=== PATIENT | male | born 1945 | race Caucasian/White ===

== ENCOUNTER 2020-02-01 12:26 | Outpatient (CLI) | payer OTHER, SELFPAY ==
--- NOTE | 2020-02-01 12:32 | USCV_ITS ---
Ang Yap Age: 74 Gender: M : 1945 Exam Date: 02/01/2020 12:49 Ordering Phys: Raymond Olea MD Technologist: Lottie Aguirre Exam Location: [facility] Indication: CAD BP: / HR: 66 Rhythm: Sinus Technical Quality: Adequate MEASUREMENTS (Male / Female) Normal Values 2D ECHO LV Diastolic Diameter PLAX 3.6 cm 4.2 - 5.9 / 3.9 - 5.3 cm LV Systolic Diameter PLAX 2.8 cm LV Chamber Size 2.4 cm IVS Diastolic Thickness 1.1 cm 0.6 - 1.0 / 0.6 - 0.9 cm IVS Systolic Thickness 1.6 cm LVPW Diastolic Thickness 1.1 cm 0.6 - 1.0 / 0.6 - 0.9 cm LVPW Systolic Thickness 1.0 cm RV Chamber Size 2.1 cm LVOT Diameter 2.0 cm LV Ejection Fraction 2D Teich 46.5 % LV Ejection Fraction MOD 2C 56.6 % LV Ejection Fraction 2C AL 61.9 % LA Diameter 2.7 cm LA Width 2.9 cm LA Height 2.7 cm RA Width 2.7 cm RA Height 3.0 cm Aorta at Sinotubular Diameter 3.4 cm M-MODE LV Diastolic Diameter MM 3.5 cm 4.2 - 5.9 / 3.9 - 5.3 cm LV Systolic Diameter MM 2.5 cm LV Ejection Fraction MM Teich 59.0 % IVS Diastolic Thickness MM 0.9 cm 0.6 - 1.0 / 0.6 - 0.9 cm IVS Systolic Thickness MM 1.2 cm LVPW Diastolic Thickness MM 0.9 cm 0.6 - 1.0 / 0.6 - 0.9 cm LVPW Systolic Thickness MM 1.2 cm RV Diastolic Diameter MM 1.2 cm Aortic Annulus Diameter 3.5 cm LA Ao Ratio MM 0.8 MV E Point Septal Separation 0.6 cm DOPPLER AV Peak Velocity 101.0 cm/s LVOT Peak Velocity 72.0 cm/s AV Area Cont Eq vti 2.3 cm squared AV Area Cont Eq pk 2.3 cm squared MV Area PHT 3.1 cm squared Mitral E to A Ratio 0.9 MV E' Velocity 8.0 cm/s Mitral E to MV E' Ratio 9.2 Mitral E to LV E' Lateral Ratio 9.5 Mitral E to LV E' Septal Ratio 9.0 TR Peak Velocity 217.3 cm/s TR Peak Gradient 18.9 mmHg TR Mean Velocity 168.0 cm/s TR Mean Gradient 12.4 mmHg TR Velocity Time Integral 59.5 cm TV Peak E Velocity 71.0 cm/s Right Atrial Pressure 5.0 mmHg Pulmonary Artery Systolic Pressu 23.9 mmHg PV Peak Velocity 50.0 cm/s RV Acceleration Time 0.1 s RV Ejection Time 0.4 s RV AcT/ET 0.4 FINDINGS Left Ventricle Normal left ventricular size and systolic function, EF 55 %. Mild left ventricular hypertrophy. Mild hypokinesia of the basal septum. grade I/IV diastolic dysfunction (abnormal relaxation filling pattern), normal to mildly elevated filling pressures. Right Ventricle Normal right ventricular size and systolic function. Right Atrium Normal right atrial size. Left Atrium Normal left atrial size. Mitral Valve Thickened mitral valve. Trace mitral valve regurgitation. Aortic Valve Thickened aortic valve. Tricuspid Valve Trace tricuspid valve regurgitation. Pulmonic Valve No gross abnormalities noted Pericardium No pericardial effusion. Aorta Normal aortic annulus size. CONCLUSIONS Normal left ventricular size and systolic function, EF 55 %. Mild left ventricular hypertrophy. No regional wall motion abnormalities. Grade I/IV diastolic dysfunction (abnormal relaxation filling pattern), normal to mildly elevated filling pressures. Thickened mitral valve. Trace mitral valve regurgitation. Thickened aortic valve. Trace tricuspid valve regurgitation. Estimated pulmonary artery peak systolic pressure of 24 mmHg There are no intracardiac masses. There is no pericardial effusion. Compared to the study from 03/17/2019, no significant changes in the 2D finding Dr Reji Ayers MD FAC (Electronically Signed) Final Date: 01 February 2020 18:26 S
== END 2020-02-01 12:27 | disposition home or self-care (01) ==
LOC: US 12:27
PROVIDERS: PCP Emergency Medicine Emergency Medical Services; Visit Provider Orthopaedic Surgery
DX: I25.10 Atherosclerotic heart disease of native coronary artery without angina pectoris (principal); I08.0 Rheumatic disorders of both mitral and aortic valves
CPT/HCPCS: 93306

== ENCOUNTER 2020-02-12 06:54 | Outpatient (CLI) | payer OTHER, SELFPAY ==
--- NOTE | 2020-02-12 07:00 | MR_ITS ---
WS: [id number] MRI LUMBAR SPINE NONCONTRAST TECHNIQUE: Sagittal T1, T2 and STIR imaging. Axial T1 and T2 imaging. CLINICAL INFORMATION: LOW BACK PAIN W/RADICULOPATHY COMPARISON: None. FINDINGS: Mild lumbar curve. No acute compression. No high-grade central canal stenosis. L1-L2: Tiny right foraminal protrusion with mild right foraminal narrowing. L2-L3: Mild annular bulging. Tiny left foraminal protrusion with mild left foraminal narrowing. Mild facet arthropathy. L3-L4: Annular bulging with a small right foraminal protrusion. Contact of the exiting right L3 nerve root with mild to moderate right foraminal narrowing. Left foramen is patent. Mild to moderate facet arthropathy. L4-L5: Right eccentric disc osteophyte ridging with mild right foraminal narrowing. Left foramen is p atent. Mild facet arthropathy. L5-S1: Mild disc osteophytic ridging. Slight effacement of ventral thecal sac. Moderate bilateral for aminal narrowing right greater than left. Moderate facet arthropathy. Visualized pelvic bony structures: Normal. Paravertebral soft tissues: Normal. MR/MR lumbar spine wo con* [id number] IMPRESSION: 1. Mild lumbar curve. No acute compression. No high-grade central canal stenos is. 2. Small right foraminal protrusion L3-4 contacts the exiting right L3 nerve r oot with mild to moderate foraminal narrowing. 3. Mild to moderate right L4-5 foraminal narrowing. Encroachment on the far ex iting L4 nerve root due to disc osteophyte complex. 4. Tiny right foraminal protrusion L1-2 with mild right foraminal narrowing. 5. Small left foraminal protrusion L2-3 encroaches on the exiting left L2 nerv e root. 6. Disc osteophytic ridging L5-S1 with moderate bilateral foraminal narrowing right greater than left. Correlation for right L5 nerve root symptoms.
== END 2020-02-12 06:55 | disposition home or self-care (01) ==
PROVIDERS: PCP Emergency Medicine Emergency Medical Services; Visit Provider Emergency Medicine Emergency Medical Services
DX: M54.5 Low back pain (principal); M54.16 Radiculopathy, lumbar region; M25.78 Osteophyte, vertebrae; M51.26 Other intervertebral disc displacement, lumbar region
CPT/HCPCS: 72148

== ENCOUNTER → 2020-08-22 11:05 | Outpatient (BNVA) | payer OTHER, SELFPAY | PROVIDERS: PCP Emergency Medicine Emergency Medical Services; Referring Provider Family Medicine; Visit Provider Specialist | DX: M25.512 Pain in left shoulder (principal) | CPT/HCPCS: 73030 ==

== ENCOUNTER → 2021-01-25 14:12 | Outpatient (BNVA) | payer OTHER, SELFPAY | PROVIDERS: PCP Emergency Medicine Emergency Medical Services; Referring Provider Family Medicine; Visit Provider Specialist | DX: M79.662 Pain in left lower leg (principal) | CPT/HCPCS: 73560; 73565; 73590 ==

== ENCOUNTER → 2021-02-15 08:57 | Outpatient (BNVA) | payer OTHER, SELFPAY | PROVIDERS: PCP Emergency Medicine Emergency Medical Services; Visit Provider Internal Medicine Cardiovascular Disease | DX: E78.2 Mixed hyperlipidemia (principal); I25.10 Atherosclerotic heart disease of native coronary artery without angina pectoris | CPT/HCPCS: 80048; 83880 ==

== ENCOUNTER 2021-03-23 14:40 | Outpatient (CLI) | payer OTHER, SELFPAY ==
--- NOTE | 2021-03-23 14:46 | USCV_ITS ---
Ang Yap Age: 76 Gender: M : 1945 Exam Date: 03/23/2021 15:04 Ordering Phys: Jonn Duffy DO Technologist: Nathalia Winslow [place] [facility] [place]ication: PAIN Risk Factors: Previous Vascular Surgery: RIGHT LEFT BP: 156.0 / 74.00 BP: 163.0/ 75.00 0 0 Waveform Velocity (cm/s) Velocity (cm/s) Waveform Monophasic 42.0 Iliac Prox 21.4 Monophasic Monophasic 43.4 Iliac Mid 20.2 Monophasic Monophasic 41.9 Iliac Distal 23.3 Monophasic Monophasic 48.2 ELECTRIC DEICER INSPECTOR 26.2 Monophasic Monophasic 29.9 SFA Prox 27.2 Monophasic Monophasic 39.4 SFA Mid 27.2 Monophasic Monophasic SFA Dist Monophasic 30.3 36.1 Monophasic 15.9 POP 20.8 Monophasic Monophasic 14.4 INTERNET CONSULTANT 22.4 Monophasic Monophasic 25.6 DPA 17.9 Monophasic 0.4 SANCHO 0.5 FINDINGS RT INTERNET CONSULTANT 35 RT DPA 70 LT INTERNET CONSULTANT 80 LT DPA 60 Monophasic low velocity Doppler waveforms bilaterally Moderate diffuse plaques iliac and femoral arteries bilaterally. Resting SANCHO of 0.4 on the right side and 0.5 on the left side CONCLUSIONS 1. Abnormal resting SANCHO and arterial Doppler waveforms, suggestive of severe obstructive arterial disease bilaterally. 2. Possible aortoiliac disease. Dr Reji Ayers MD [facility] (Electronically Signed) Final Date: 23 March 2021 23:46 S
== END 2021-03-23 14:41 | disposition home or self-care (01) ==
LOC: US 14:42
PROVIDERS: PCP Emergency Medicine Emergency Medical Services; Visit Provider Emergency Medicine Emergency Medical Services
DX: M79.604 Pain in right leg (principal); M79.605 Pain in left leg
CPT/HCPCS: 93925

== ENCOUNTER → 2021-04-03 13:52 | Outpatient (BNVA) | payer OTHER, SELFPAY | PROVIDERS: PCP Emergency Medicine Emergency Medical Services; Referring Provider Emergency Medicine Emergency Medical Services; Visit Provider Podiatrist Foot & Ankle Surgery | DX: M25.572 Pain in left ankle and joints of left foot (principal) | CPT/HCPCS: 73630 ==

== ENCOUNTER 2021-06-26 12:38 | Outpatient (CLI) | payer OTHER, SELFPAY ==
--- NOTE | 2021-06-26 12:47 | USCV_ITS ---
Ang Yap Age: 76 Gender: M : 1945 Exam Date: 06/26/2021 13:27 Ordering Phys: Reji Ayers MD ([email or web address]) Technologist: TRISH Exam Location: [facility] – [place] Indication: c/o BILATERAL neck bruits. Long-term smoker continues smoking. No DM. Risk Factors: c/o BILATERAL neck bruits. Long-term smoker continues smoking. No DM. Previous Vascular Surgery: None Right Brachial BP: / Left Brachial BP: / Right Left Velocity (cm/s) Spectral Plaque Velocity (cm/s) Spectral Plaque Syst/Diast Broadening Syst/Diast Broadening 73.90/ 13.20 None Homo Prox CCA 127.40/ 21.80 None Hetro 90.40/ 14.30 None Homo Mid CCA 141.40/ 18.60 None Hetro 87.10/ 16.50 None Homo Distal CCA 104.10/ 18.60 None Hetro 76.90/ 18.80 None Homo Prox ICA 78.60 / 19.70 None Hetro 87.20/ 29.10 None Homo Mid ICA 101.70/ 23.10 None Homo 81.20/ 24.80 None Homo Distal ICA 104.20/ 25.60 None Homo 364.60 Mod Hetro ECA 358.90 Mod Hetro 0.96 ICA/CCA 0.74 Antegrade Vertebral Antegrade 66.70/ 19.70 cm/s 38.80/ 9.30 cm/s Tri Subclavian Tri 108.1 142.9 0 0 FINDINGS Mild to moderate heterogeneous plaques at the bifurcations and proximal internal carotid arteries bilaterally Markedly elevated velocities in the external carotid arteries bilaterally Antegrade flow in the vertebral arteries bilaterally Normal Doppler flow velocities in the subclavian arteries bilaterally CONCLUSIONS Mild to moderate heterogeneous plaques at the bifurcations and proximal internal carotid arteries bilaterally, suggesting less than 50% stenosis. Elevated velocities in the external carotid arteries bilaterally, suggesting hemodynamically significant stenosis. Dr Reji Ayers MD [facility] (Electronically Signed) Final Date: 28 June 2021 20:45 S
--- NOTE | 2021-06-26 13:30 | USCV_ITS ---
Ang Yap Age: 76 Gender: M : 1945 Exam Date: 06/26/2021 12:20 Ordering Phys: Keo Deal DPM Technologist: Jay Schuster RVT [place] [facility] [place]: [place]OT PAIN RIGHT LEFT Brachial 122.00 mmHg Brachial 115.00 mmHg Pressure (mmHg) Waveform Pressure (mmHg) Waveform 70.00 Above Knee 68.00 68.00 Below Knee 93.00 LOADER 57.00 73.00 DPA 76.00 0.60 Ankle/Brachial Index 0.62 54.00 Pre-Exercise Toe Pressure 41.00 Pre-Exercise Toe/Brachial Index 0.34 0.44 FINDINGS Diminished resting ABIs bilaterally Diminished resting TBI bilaterally PVR waveforms showing loss of dicrotic notch bilaterally CONCLUSIONS The above features are consistent with some moderate peripheral artery disease bilaterally Features of possible total occlusion of the posterior tibial artery on the right side Dr Reji Ayers MD [facility] (Electronically Signed) Final Date: 28 June 2021 20:20 S
== END 2021-06-26 12:39 | disposition home or self-care (01) ==
LOC: US 12:38
PROVIDERS: PCP Emergency Medicine Emergency Medical Services; Visit Provider Podiatrist Foot & Ankle Surgery
DX: R09.89 Other specified symptoms and signs involving the circulatory and respiratory systems (principal)
CPT/HCPCS: 93880; 93923

== ENCOUNTER → 2021-07-13 10:45 | Outpatient (BNVA) | payer OTHER, SELFPAY | PROVIDERS: PCP Emergency Medicine Emergency Medical Services; Referring Provider Internal Medicine Cardiovascular Disease; Visit Provider Internal Medicine Cardiovascular Disease | DX: M79.605 Pain in left leg (principal) | CPT/HCPCS: 80048; 85025; 85610; 86850; 86900; 87635 ==

== ENCOUNTER 2021-07-17 06:07 | Outpatient (CLI) | payer OTHER, MEDICARE, SELFPAY ==
[2021-07-17] VITALS (12 sets, daily range): BP systolic 101–141; BP diastolic 56–82; PULSE 79–89; RESP 14–22; TEMP 36.4–37.1; O2SAT 80–98; BMI 28.8
--- NOTE | 2021-07-17 06:00 | XACV_ITS ---
Wt: 78 kg BSA: 1.92 m2 Any Known Allergies: Penicillins Gender: Male : 1945 Exam Type: Invasive Peripheral Vascular - Dual Hull Procedure(s): Procedure Description: Peripheral Cath Diagnostic Procedure Procedure Description: Abdominal aortic angiography Procedure Description: Peripheral vascular Intervention Procedure Description: PV Balloon Procedure Description: PV Stent Procedure Description: Aortic Arch Angiography Exam Priority: Routine GEOAC, Armen; Carotid Diagnostic Findings The right femoral arterial access obtained using a micropuncture needle system. A 6 Slovenian arterial sheath was inserted over a guidewire. Lower Extremity Diagnostic Findings The right femoral arterial access obtained using a micropuncture needle system. A 6 Slovenian arterial sheath was inserted over a guidewire. Guidewire could not be advanced past the aortoiliac junction. I performed an external iliac angiogram with runoff in the anteroposterior view by injecting into the arterial sheath. The findings are as follows. The external iliac and the common iliac artery were found to have severe diffuse disease and possibly occluded at the iliofemoral junction. Collateral filling of the common femoral artery was noted to circumflex iliac/lumbar arteries. Moderate diffuse calcification was noted around the origin of the profunda femoral artery. The femoral, popliteal and infrapopliteal vessels were found to be patent. The anterior tibial and the peroneal artery was found to be extending up to the ankle. Proximal one third of the posterior tibial artery was visualized and was found to be free of any significant stenosis. The distal segments of this arteries were found to have delayed filling. Lower Extremity Interventional Findings Intervention: Right femoral and right radial approach was adopted, through right radial we placed pigtail catheter for injection and runoff. Through right femoral approach Glidewire wire advanced over which seeker catheter was passed. After somewhat difficulty I was able to cross and through right external iliac, common iliac into aorta. Multiple balloon angioplasty of the common and ostial iliac was performed. Then I advanced a wire through right radial approach. I was able to cross with a Glidewire through right radial approach into left common iliac . We then withdraw pigtail catheter out of the body. Through right radial approach we passed balloon into the left common iliac since we decided to placed covered stent in the right common iliac with intention of kissing balloon. Right common iliac was then treated with covered stent with a kissing balloon technique. Thrombus was noted in the right common femoral and proximal SFA. Anticoagulation was given, it finally cleared it. Good angiographic result with good flow was noted from right common femoral to SFA and profundofemoral. Please also note that we used IVUS to assess right common femoral ostial lesion after stent placement. Stent was appear to be distorted. It was then postdilated with excellent result.. Conclusions Possible occlusion of the right common iliac artery at the aortoiliac junction. Severe diffuse disease in the and external iliac arteries. Collateral filling of the common femoral artery through lumbar/circumflex iliac arteries. Femoral, popliteal and infrapopliteal vessels were found to be patent with no significant stenotic lesions. The distal infrapopliteal vessels are not well visualized because of the delayed filling. Recommendations I discussed and reviewed the angiogram findings with Dr Loera. It was thought to be appropriate to consider percutaneous intervention of the right iliac artery lesions, after evaluating the aortao- iliac junction and the left iliac vessels. Dr. Loera took over further management of this patient at this point. 1-Return to inpatient for close monitoring and routine cath care2-Risk factor modification for secondary prevention3-Statin and aspirin 81 mg life--long, if tolerated4-Patient was pre-loaded with 300 mg of Plavix, continue Plavix 75mg p.o. daily for at 3 months from peripheral perspective. 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 He will be brought back in 2 weeks with right radial approach for intervention on the left side.5-Continue optimal medical management6-Follow up with Dr. Ayers in four weeks and your primary care in 10 days. Hemodynamic Data Phase:Rest AO : 69.0 / 64.0 ( 63.0 ) @ 5:53:00 AM 99.0 / 54.0 ( 76.0 ) @ 6:58:00 AM 123.0 / 47.0 ( 79.0 ) @ 7:39:00 AM Access Site Site: Right Femoral artery Sheath Size: 6 Fr Hemost... Method: Perclose (Sharma) Hemost... Success: Successful Site: Right Radial artery Sheath Size: 6 Fr Hemost... Method: TR Band Hemost... Success: Successful Procedure Details Findings Procedure Consent Obtained. Admit Source: Out Patient. Pre-Procedure Time Out. Identified patient by full name and date of as verbalized by the patient/guarantor. Does the consent match the physician's order: Yes. Accurate & Complete Informed Consent: Yes. Inpatient/Outpatient History & Physical on Chart: Yes. If H&P is completed, is and addenduem needed: Yes; If yes, is the addendum complete: N/A. Visualize and Verify Site with Patient/Guarantor: N/A. Relevant Radiology Images available: N/A. Pre-op teaching completed and patient verbalized understanding. The risks, benefits, and alternatives of sedation and/or procedure were discussed by physician. The patient agrees to continue. Procedure started. Correct patient, site and procedure confirmed by cath team. PERRLA. Strong, equal hand catering cook bilaterally. Lungs clear x 5 lobes. IV Site on Arrival: 20 gauge in the left anticubital. Pre Procedural Pulses: bilateral dorsalis pedis was Doppled. Pre Procedural Pulses: bilateral posterior tibial was Doppled. Pre Procedural Pulses: bilateral radial was 1+. Oxygen started at 2liters/min via nasal canula. bilateral groins was prepped with chloroprep then draped in the usual sterile fashion. Physician notified. Baseline sample Acquired. HR: 94 BPM. Physician arrived. Physician scrubbed in. Time out performed with cath team. Lidocaine 1% infiltrated to the right groin. Arterial access obtained with micropuncture set. hand injection performed. hand injection performed. hand injection performed. glidewire inserted. A 5FrFr UF catheter in over wire. hand injection performed through the catheter. Catheter out. Abdominal aortogram performed in AP @ 10 mL/sec for a total of [address] Loera notified. Side port of sheath attached to Normal Saline flush at KVO to maintain patency. Dr. Loera arrived. Dr. Loera scrubbed in to perform intervention. Lidocaine 1% infiltrated to the right radial. Arterial access obtained. A 5 occitan Angled Pig catheter in over wire. Catheter inserted over the glide wire. LV gram performed in AP @ 10 mL/second for a total of 30 mL. runoff performed of the left leg. Pigtail postioned above the bifurcation of the iliacs. Aortagram performed @ 10 mL/sec for a total of 30 mL. runoff performed of the left leg. Glidewire in through the sheath. Seeker in over the glidewire. wire out. hand injection performed through the seeker. going in with glidewire through the seeker. seeker out. Inflation number : 1 A AB ARMADA 35 OTW [id number] was prepped and advanced across the Ostial Common Iliac, Right , then inflated to 6 ANA for 2:01 seconds. Inflation number: 2 The AB ARMADA 35 OTW [id number] was reinflated across the Ostial Common Iliac, Right, to 6 ANA for 0:12 seconds. Inflation number: 3 The AB ARMADA 35 OTW [id number] was reinflated across the Ostial Common Iliac, Right, to 6 ANA for 2:03 seconds. balloon out. Abdominal aortogram performed in BOYCE @ 10 mL/sec for a total of 30 mL. Abdominal aortogram performed in AP @ 10 mL/sec for a total of 30 mL. hand injection performed through the femeral sheath. Sheath upsized to a 7 Fr. hand injection performed. Inflation Number : 4 A LIFESTREAM 8MMX [id number] -Lot Number# [id number] exp date: 11-12-2023 was prepped and advanced across the Ostial Common Iliac, Right. The stent was deployed at 8 ANA for 2:03 seconds. checking results. Inflation number : 5 A AB ARMADA 35 OTW [id number] was prepped and advanced across the Ostial Common Iliac, Right , then inflated to 6 ANA for 2:02 seconds. balloon out. checking results. hand injection performed through the femeral sheath. Abdominal aortogram performed in BOYCE @ 103 mL/sec for a total of 30 mL. LV gram performed in BOCYE @ 10 mL/second for a total of 30 mL. Inflation number : 6 A AB ARMADA 35 OTW [id number] was prepped and advanced across the Ostial Common Iliac, Right , then inflated to 6 ANA for 0:10 seconds. Inflation number: 7 The AB ARMADA 35 OTW [id number] was reinflated across the Ostial Common Iliac, Right, to 6 ANA for 2:01 seconds. Inflation number: 8 The AB ARMADA 35 OTW [id number] was reinflated across the Ostial Common Iliac, Right, to 6 ANA for 2:02 seconds. balloon out. Abdominal aortogram performed in AP @ 10 mL/sec for a total of 30 mL. hand injection performed in the femoral sheath. hand injection performed. seeker in over the glidewire. glidewire out. seeker out. [employer] [place] [employer] digital IVUS Catheter inserted. IVUS catheter out. seeker inserted over the cougar wire. cougar wire out. glidewire inserted. ACT drawn. Results 197 seconds. Therapeutic limits - pre-heparin administration 90-150 seconds and monitoring heparin during a vascular procedure >250 seconds. Pigtail postioned above the bifurcation of the iliacs. Aortagram performed @ 10 mL/sec for a total of 20 mL. glidewire in through the pigtail. pigtail out over glidewire. Inflation number : 1 A AB ARMADA 35 OTW [id number] was prepped and advanced across the Ostial Common Iliac, Left , then inflated to 6 ANA for 2:01 seconds. Inflation Number : 9 A LIFE STREAM [id number] -Lot Number# [id number] exp date: 04-13-2023 was prepped and advanced across the Ostial Common Iliac, Right. The stent was deployed at 8 ANA for 2:00 seconds. balloon out. In with pigtail through radial sheath. Pigtail postioned above the bifurcation of the iliacs. Aortagram performed @ 10 mL/sec for a total of 30 mL. Heath catheter placed by Marry Mead RN. Abdominal aortogram performed in AP @ 10 mL/sec for a total of 30 mL. runoff performed of the left leg. popliteal was prepped with chloroprep then draped in the usual sterile fashion. Mariana Maxilupe scrubbed in for Sahara Howard. Lidocaine 1% infiltrated to the popliteal. ultra sound used to try and help gain access. aborting popliteal access. glidewire inserted through the radial sheath. pigtail out over glidewire. seeker inserted over the glidewire. seeker out over the glidewire. JR4 inserted. JR4 out over glidewire. glidewire out of groin. groin shot performed. TR band placed. Hemostasis obtained. Perclose placed without complications. No signs or symptoms of hematoma noted. Sterile dressing applied per usual sterile fashion. Post Procedure: Pulses reassessed and unchanged. PERRLA. Strong, equal hand catering cook bilaterally. No VTE prophylaxis required. Medication's Wasted: Lidocaine 1% = 10 mL. Medication's Wasted: Nitro = 50 mg. Medication's Wasted: Heparin = 1500 units. Total IV fluids: 320 mL. Contrast type used: Visipaque 320 mgI/mL, 500 mL bottle. Contrast Material : Visipaque 565 ml. A Perclose ([employer]) was successful obtaining hemostatsis at the Right Femoral artery insertion site. A TR Band was successful obtaining hemostatsis at the Right Radial artery insertion site. TELEVISION DIRECTOR: common/external illiac with stents. Post-op diagnosis: successful angioplasty. Complications: none. Estimated blood loss: 5mL-10mL. Responsiveness - Normal response to verbal stimuli; alert and oriented, PERRLA. Airway - Unaffected, no intervention required; spontaneous ventilation. Circulation: W/N/L, pulses unchanged. Nausea/Vomiting: N/A. Procedure completed. Patient transferred by bed to 1st floor. Vital chart was stopped. Procedure Medications Start: 7:24 AM Stop: 7:24 AM Medication: Versed Amount: 1 mg Route: I.V. Start: 7:24 AM Stop: 7:24 AM Medication: Fentanyl Amount: 50 mcg Route: I.V. Start: 7:49 AM Stop: 7:49 AM Medication: Versed Amount: 1 mg Route: I.V. Start: 8:06 AM Stop: 8:06 AM Medication: Heparin Amount: 1500 units Route: I.V. Start: 8:24 AM Stop: 8:24 AM Medication: Heparin Amount: 1000 units Route: I.V. Start: 8:42 AM Stop: 8:42 AM Medication: Versed Amount: 1 mg Route: I.V. Start: 8:42 AM Stop: 8:42 AM Medication: Fentanyl Amount: 25 mcg Route: I.V. Start: 9:07 AM Stop: 9:07 AM Medication: Versed Amount: 1 mg Route: I.V. Start: 9:10 AM Stop: 9:10 AM Medication: Fentanyl Amount: 25 mcg Route: I.V. Start: 9:12 AM Stop: 9:12 AM Medication: Zofran (ondansetron) Amount: 4 mg Route: I.V. Start: 9:29 AM Stop: 9:29 AM Medication: Heparin Amount: 5000 units Route: I.V. Start: 9:36 AM Stop: 9:36 AM Medication: Heparin Amount: 5000 units Route: I.V. Start: 9:54 AM Stop: 9:54 AM Medication: Fentanyl Amount: 25 mcg Route: I.V. Start: 10:17 AM Stop: 10:17 AM Medication: Fentanyl Amount: 25 mcg Route: I.V. Start: 10:30 AM Stop: 10:30 AM Medication: Versed Amount: 1 mg Route: I.V. Start: 10:30 AM Stop: 10:30 AM Medication: Heparin Amount: 2000 units Route: I.V. Start: 10:53 AM Stop: 10:53 AM Medication: Versed Amount: 1 mg Route: I.V. Start: 11:10 AM Stop: 11:10 AM Medication: Fentanyl Amount: 25 mcg Route: I.V. Start: 11:26 AM Stop: 11:26 AM Medication: Fentanyl Amount: 25 mcg Route: I.V. I, the attending physician, have reviewed and verified all procedure medications. Yes, all medications given per verbal order History/Risk Factors Hypertension: Yes Dyslipidemia: Yes Tobacco Use: Current/Recent(w/in 1 year) Report Signatures Interventional Workflow Finalized by Margot Loera MD on 07/30/2021 04:50 PM Diagnostic Workflow Finalized by Dr Reji Ayers MD [facility] on 07/17/2021 08:37 PM
[2021-07-17] MEDS: diphenhydrAMINE 50 mg Capsule PO (06:39)
[2021-07-17 06:57] LABS: Basophils # 0.1 10^3/uL (0.0-0.1); Basophils % 0.6 %; Eosinophils # 0.3 10^3/uL (0.0-0.8); Eosinophils % 2.6 %; Hematocrit 39.7 % (42.0-52.0); Hemoglobin 13.1 g/dL (11.7-16.6); Lymphocytes # 1.8 10^3/uL (0.8-4.8); Lymphocytes % 14.6 %; Mean Corpuscular Hemoglobin 32.2 pg (28.0-34.0); Mean Corpuscular Volume 97.5 fl (80-94); Mean Platelet Volume 8.8 fL (7.4-10.4); Monocytes # 1.4 10^3/uL (0.2-0.9); Monocytes % 11.1 %; Neutrophils # 8.53 10^3/uL (1.8-7.7); Neutrophils % 70.3 %; Nucleated Red Blood Cells % 0 %; Platelet Count 224 10^3/cmm (130-400); Red Blood Count 4.07 10^6/uL (4.1-5.3); Red Cell Distribution Width 13.1 % (12.1-15.1); White Blood Count 12.1 10^3/uL (4.0-10.0)
--- NOTE | 2021-07-17 07:22 | W.PM.OPSUD ---
Surgery/Procedure H&P Update DATE OF PROCEDURE: July 17, 2021 DATE H&P PERFORMED: 07/10/21 H&P UPDATE INFORMATION: I have reviewed H&P completed within last 30 days, I have examined patient prior to procedure and No changes to prior documentation PREOP DIAGNOSIS: PAD PRIMARY INDICATION FOR PROCEDURE: leg pain, agnormal [place] PLANNED PROCEDURE: Operation Date: 07/17/21 07:00 Proposed Procedures p Peripheral Diagnostic(Bilateral) - Reji Ayers MD PATIENT REASSESSED PRIOR TO SEDATION, WITH NO CHANGE NOTED: Yes PHYSICAL EXAM: alert, oriented x 3, clear to auscultation bilaterally and regular rate & rhythm AIRWAY EVAL/ANESTHESIA PLAN: normal airway, see other exam findings, ASA II, Monitored Anesthesia, Local Anesthesia, Risks, benefits & alternatives of sedation and/or procedure discussed and Patient agrees to continue as planned
--- NOTE | 2021-07-17 12:00 | PC.NURSE ---
Received from [employer] pt is awake, alert, oriented. pt has a TR band on right wrist. no hematoma, swelling or bleeding. radial pulse is palpable. pt has a periclose on right groin. no hematoma, swelling or bleeding. pedal pulses are diminished but dopplerable. feet is warm. pt denies any pain or discomfort. Pt has cline cath placed in [employer]. call light provided. at bedside.
[2021-07-17] MEDS: sodium chloride 0.9% 1,000 ML 100 ML IV ×2 (12:56→23:51)
[2021-07-17] MEDS: clopidogrel 300 mg Tablet PO (12:58)
[2021-07-17] MEDS: amlodipine 5 mg Tablet PO ×2 (13:12→19:29)
[2021-07-17] MEDS: cilostazol 100 mg Tablet PO ×2 (13:12→19:28)
[2021-07-17] MEDS: carvedilol 25 mg Tablet PO ×2 (13:15→19:28)
[2021-07-17] MEDS: aspirin 81 mg EC Tablet PO (13:16)
[2021-07-17] MEDS: albuterol 8 gm MDI 1 PUFF INHALATION ×3 (13:40→20:07)
[2021-07-17] MEDS: chlorthalidone 25 mg Tablet PO (14:52)
--- NOTE | 2021-07-17 19:20 | PC.NURSE ---
Received report from CAITLYN Maria. Patient s/p peripheral angiogram with intervention. Patient upset at this time due to wanting to go and have a smoke . Instructed patient on hospital policy regarding smoking. Patient verbalized understanding. Was offered nicotine patch or gum which he refused. Patient denies other needs. No distress observed. Will continue to monitor.
[2021-07-17] MEDS: temazepam 15 mg Capsule PO (19:28)
[2021-07-17] MEDS: atorvastatin 40 mg Tablet PO (19:29)
[2021-07-17] MEDS: HYDROcodone-acetaminophen 5-325 mg Tablet 1 TAB PO (23:50)
[2021-07-18 02:38] LABS: Basophils # 0.1 10^3/uL (0.0-0.1); Basophils % 0.4 %; Eosinophils # 0.2 10^3/uL (0.0-0.8); Eosinophils % 1.7 %; Hematocrit 38.2 % (42.0-52.0); Hemoglobin 12.6 g/dL (11.7-16.6); Lymphocytes # 1.4 10^3/uL (0.8-4.8); Lymphocytes % 10.1 %; Mean Corpuscular Hemoglobin 32.2 pg (28.0-34.0); Mean Corpuscular Volume 97.7 fl (80-94); Monocytes # 1.5 10^3/uL (0.2-0.9); Monocytes % 10.8 %; Neutrophils # 10.63 10^3/uL (1.8-7.7); Neutrophils % 76.6 %; Nucleated Red Blood Cells % 0 %; Platelet Count 211 10^3/cmm (130-400); Red Blood Count 3.91 10^6/uL (4.1-5.3); Red Cell Distribution Width 13.1 % (12.1-15.1); White Blood Count 13.9 10^3/uL (4.0-10.0)
[2021-07-18 03:02] LABS: Anion Gap 13.5 (5-19); Blood Urea Nitrogen 12 mg/dL (8-23); Calcium 7.6 mg/dL (8.5-10.5); Carbon Dioxide 26 mmol/L (22-29); Chloride 101 mmol/L (98-107); Glucose 84 mg/dL (65-115); Osmolality Calculated 283 mOsm/kg (285-295); Potassium 3.5 mmol/L (3.5-5.1); Sodium 137 mmol/L (136-145)
[2021-07-18 04:22] VITALS: BP 148/76; PULSE 92; RESP 24; TEMP 36.6; O2SAT 86
[2021-07-18] MEDS: HYDROcodone-acetaminophen 5-325 mg Tablet 1 TAB PO ×2 (04:29→08:35)
--- NOTE | 2021-07-18 05:32 | PC.NURSE ---
Patient has uneventful evening. Patient does report chronic pain in his neck stating, I just can't lie in a bed. I usually sleep in a recliner at home. Instructed patient on hydrocodone. Patient verbalized complete understanding. Denies other needs. No distress observed. Will continue to monitor.
[2021-07-18 05:47] VITALS: PULSE 86
[2021-07-18 07:24] VITALS: PULSE 99; RESP 20; O2SAT 90
[2021-07-18] MEDS: albuterol 8 gm MDI 1 PUFF INHALATION (07:24)
[2021-07-18 08:05] VITALS: BP 133/66; PULSE 96; RESP 18; TEMP 36.6; O2SAT 90
[2021-07-18] MEDS: amlodipine 5 mg Tablet PO (08:28)
[2021-07-18] MEDS: isosorbide mononitrate ER 60 mg Tablet 120 MG PO (08:28)
[2021-07-18] MEDS: chlorthalidone 25 mg Tablet PO (08:28)
[2021-07-18] MEDS: aspirin 81 mg EC Tablet PO (08:28)
[2021-07-18] MEDS: cilostazol 100 mg Tablet PO (08:28)
[2021-07-18] MEDS: carvedilol 25 mg Tablet PO (08:28)
--- NOTE | 2021-07-18 10:41 | XRR_ITS ---
PROCEDURE INFORMATION: Exam: XR Chest Exam date and time: 07/18/2021 10:41 AM Age: 76 years old Clinical indication: Other: Low o2 levels; Additional info: O2 saturations TECHNIQUE: Imaging protocol: XR of the chest. Views: 1 view. Total images: 1 COMPARISON: CR XR knees AP WB w LT lmt ORTH 01/25/2021 2:20 PM FINDINGS: Lungs: Trace atelectasis or scar noted in the left lung base. Pleural spaces: Unremarkable. No pleural effusion. No pneumothorax. Heart/Mediastinum: Unremarkable. No cardiomegaly. Vasculature: Atherosclerosis is evident. Bones/joints: Mild scattered degenerative changes of the spine. XR/XR chest 1V portable [id number] IMPRESSION: Trace atelectasis or scar noted in the left lung base.
--- NOTE | 2021-07-18 10:48 | PC.NURSE ---
Spoke with Dr ramos about patient needing o2 during this stay to maintain o2 grater than 90% instructions received to obtain chest xray he would be to see patient soon have patient walk with no o2 and check saturations with ambulation
[2021-07-18 11:45] VITALS: BP 133/66; PULSE 96; RESP 18; TEMP 36.6; O2SAT 90
[2021-07-18] MEDS: potassium chloride ER 10 mEq Tablet PO (11:53)
[2021-07-18] MEDS: clopidogrel 75 mg Tablet PO (11:53)
[2021-07-18] MEDS: FUROsemide 40 mg Tablet PO (11:53)
--- NOTE | 2021-07-18 11:58 | PC.NURSE ---
Discharge Note Patient discharged to home via private vehicle accompanied by spouse. Discharge instructions reviewed with patient and/or labor relations representative. Mobile pharmacy medications and/or prescriptions provided. Belongings/home medications returned.
== END 2021-07-18 11:58 | disposition home or self-care (01) ==
LOC: CCL 06:18 → CSU 07-18 06:10
PROVIDERS: Internal Medicine Cardiovascular Disease; PCP Emergency Medicine Emergency Medical Services; Visit Provider Internal Medicine Cardiovascular Disease
DX: I70.211 Atherosclerosis of native arteries of extremities with intermittent claudication, right leg (principal); I10 Essential (primary) hypertension; E78.5 Hyperlipidemia, unspecified; F17.210 Nicotine dependence, cigarettes, uncomplicated; I25.10 Atherosclerotic heart disease of native coronary artery without angina pectoris; Z79.82 Long term (current) use of aspirin
CPT/HCPCS: 36415; 37221; 37222; 71045; 75625; 75716; 80048; 85025; 85347; 92978; 94640; C1725; C1753; C1760; C1769; C1874; C1887; C1894; J1644; J2250; J2405; J3010; J3490; J3535; J7030; Q0163; Q9967

== ENCOUNTER → 2021-07-25 15:10 | Outpatient (BNVA) | payer OTHER, SELFPAY | PROVIDERS: PCP Emergency Medicine Emergency Medical Services; Visit Provider Nurse Practitioner Family | DX: Z20.822 Contact with and (suspected) exposure to COVID-19 (principal); I73.9 Peripheral vascular disease, unspecified | CPT/HCPCS: 80048; 85025; 85610; 87635 ==

== ENCOUNTER → 2021-08-09 00:01 | Outpatient (BNVA) | payer OTHER, SELFPAY | PROVIDERS: PCP Emergency Medicine Emergency Medical Services; Referring Provider Internal Medicine Cardiovascular Disease; Visit Provider Internal Medicine Cardiovascular Disease | DX: I73.9 Peripheral vascular disease, unspecified (principal); M79.605 Pain in left leg; Z20.822 Contact with and (suspected) exposure to COVID-19 | CPT/HCPCS: 87635 ==

== ENCOUNTER 2021-08-10 14:41 | Observation (INO) | payer OTHER, SELFPAY ==
[2021-08-10] VITALS (30 sets, daily range): BP systolic 117–163; BP diastolic 60–82; PULSE 74–103; RESP 15–24; TEMP 36.3; O2SAT 91–98; BMI 28.8
--- NOTE | 2021-08-10 06:00 | XACV_ITS ---
Wt: 78 kg BSA: 1.92 m2 Any Known Allergies: Plavix Gender: Male : 1945 Exam Type: Invasive Peripheral Vascular Procedure(s): Procedure Description: Peripheral Cath Diagnostic Procedure Procedure Description: Abdominal aortic angiography Procedure Description: Lower extremities' angiography Procedure Description: Peripheral vascular Intervention Procedure Description: PV Balloon Procedure Description: PV Atherectomy Exam Priority: Routine Lower Extremity Interventional Findings Peripheral intervention: Popliteal approach through retrograde stick was adopted. After placing six Uzbek sheath with the help of Glidewire and seeker we were able to cross from distal left occluded SFA into all the way to aorta. Using 2.0 CSI bur r atherectomy was performed from distal to proximal left SFA, distal to proximal left common femoral, distal to proximal left external iliac artery over Viper wire. With the help of seeker then we exchange back Glidewire over which multiple balloon angioplasties and left common iliac, external iliac, common femoral, SFA was performed. Excellent angiographic result with good flow was achieved from common iliac to all the way to the left foot. Good three-vessel runoff was noted below the knee. . Below the knee left tibioperoneal trunk anterior posterior tibial artery all the way to the foot was visualized with good flow. During the angiogram it was also noted previously placed right common iliac artery stent appeared to be closed there was no flow. It is possible since we placed the stent through right common femoral approach and at the site of entrance the sheath in the right common femoral artery there appeared to be disease and plaque segment which may have shutdown resulted in clotting of the stent. We will bring back patient to go through left common femoral vessel to intervene on occluded stent of the right common iliac. . Conclusions Indication for peripheral angiogram: Lifestyle limiting claudicationPeripheral angiogram: This is a stage percutaneous intervention from previous peripheral angiogram.Left mid to distal common iliac, internal/external iliac, common femoral, SFA limb is all course from ostium to popliteal artery was noted chronically occluded. Left popliteal, tibioperoneal trunk anterior posterior tibial vessel are patent.. Please see inventory for details use of equipment including balloon and atherectomy device. null was treated with two Balloon. null was treated with Balloon. null was treated with Balloon. Recommendations 1-Return to inpatient for close monitoring and routine cath care2-Risk factor modification for secondary prevention3-Statin and aspirin 81 mg life--long, if tolerated 4- C ontinue Plavix 75mg p.o. daily for at least 3 months 5- S tage percutaneous angioplasty of the right common iliac occluded stent and artery 6-Follow up with cardiology in four weeks and your primary care in 10 days. Hemodynamic Data Phase:Rest AO : / ( 0.0 ) @ 6:59:00 AM Access Site Site: Left Popliteal Sheath Size: 6 Fr Hemost... Method: Suture Hemost... Success: Successful Procedure Details Findings Procedure Consent Obtained. Pre-Procedure Time Out. Identified patient by full name and date of as verbalized by the patient/guarantor. Does the consent match the physician's order: Yes. Accurate & Complete Informed Consent: Yes. Inpatient/Outpatient History & Physical on Chart: Yes. If H&P is completed, is and addenduem needed: No; If yes, is the addendum complete: N/A. Visualize and Verify Site with Patient/Guarantor: N/A. Relevant Radiology Images available: Yes. The risks, benefits, and alternatives of sedation and/or procedure were discussed by physician. The patient agrees to continue. Procedure started. Correct patient, site and procedure confirmed by cath team. Current Diagnosis: Critical Limb Ischemia, Intermittent Claudication. PERRLA. Strong, equal hand avionics integration engineer bilaterally. Lungs clear x 5 lobes. IV Site on Arrival: 20 gauge in the left anticubital. IV Fluids: 0.9% NaCl at KVO. 0 mL infused prior to labor union business representative. Pre Procedural Pulses: bilateral dorsalis pedis was Doppled. Pre Procedural Pulses: bilateral posterior tibial was Doppled. Pre Procedural Pulses: bilateral radial was 3+. Oxygen started at 2liters/min via nasal canula. Left popliteal was prepped with chloroprep then draped in the usual sterile fashion. Physician notified. Baseline sample Acquired. HR: 89 BPM. Family updated at start of case by MD. Equipment: 6F - Femoral. Cardiac Cath Pack. [employer] Fantasy Manifold Kit Model BT 2000. Heparinized Saline (2 units/mL), 1000 mL bag. Kit, Micropuncture. Physician arrived. Physician scrubbed in. Immediate Pre-Procedure Time Out. Correct Patient: Yes; Correct Procedure: Yes; Correct Site: Yes; Correct Patient Position: Yes; Correct Supplies: Yes; Dried Flammable Prep: Yes; Blood Products Available: N/A;. Lidocaine 1% infiltrated to the Left popliteal. Circulating RN is Marry Mead RN. Arterial access obtained with micropuncture set. Glidewire inserted through the sheath. Seeker inserted. Wire/Seeker advanced to the distal Aorta. Wire removed. Viper wire inserted. Seeker removed. 2.0 CSI fox inserted. Atherectomy of the SFA and common femoral and external iliac performed. 2.0 FOX removed over the wire. Seeker inserted. Viper wire removed.Glidewire inserted to distal aorta. Seeker removed. Inventory is: Endoflator. Inflation number : 1 A AB [place] 35 MARKER DELIVERY Catheter [id number] was prepped and advanced across the External Iliac, Left , then inflated to 6 ANA for 2:05 seconds. Inflation number: 1 The AB [place] 35 MARKER DELIVERY Catheter [id number] was reinflated across the Common Femoral, Left, to 6 ANA for 2:06 seconds. Inflation number: 1 The AB [place] 35 MARKER DELIVERY Catheter [id number] was reinflated across the Superficial Femoral, Left, to 6 ANA for 2:01 seconds. Wire out. Hand Injection through the balloon of common femoral and SFA, Left side. Glidewire inserted through the balloon. Balloon out over the wire. A 5 nigerien Angled Pig catheter in over wire. Glidewire removed. Pigtail postioned above the bifurcation of the iliacs. Aortagram performed @ 10 mL/sec for a total of 30 mL. Pigtail postioned above the bifurcation of the iliacs. Aortagram performed @ 10 mL/sec for a total of 30 mL. Pigtail postioned above the bifurcation of the iliacs. Aortagram performed @ 10 mL/sec for a total of 30 mL. Side port of sheath attached to Normal Saline flush at KVO to maintain patency. Catheter removed over the glidewire. 10 ml/sec for a total of 30 ml taken through the sheath. Inflation number : 2 A AB [place] 35 OTW [id number] was prepped and advanced across the Superficial Femoral, Left , then inflated to 7 ANA for 2:05 seconds. Inflation number: 3 The AB [place] 35 OTW [id number] was reinflated across the Superficial Femoral, Left, to 8 ANA for 2:08 seconds. Balloon out over the wire. 10 ml/sec for a total of 30 ml taken through the sheath. Wire removed. 10 ml/sec for a total of 30 ml taken through the sheath with distal runoff. Physician review of films. Physician scrubbed out. A Suture was successful obtaining hemostatsis at the Left Popliteal insertion site. Sheath(s) sutured into position with 2-0 silk and sterile 4x4's and Op-site applied over the site. No oozing or signs and symptoms of hematoma noted. Arterial sheath flushed and connected to tranducer and pressure bag with heparinized saline. Post Procedure: Pulses reassessed and unchanged. PERRLA. Strong, equal hand avionics integration engineer bilaterally. No VTE prophylaxis required. Medication's Wasted: Lidocaine 1% = 13 ml. Total IV fluids: 180 mL. Medication's Wasted: Heparin = 2000 units. Fluoro: 11:06. Contrast type used: Visipaque 320 mgI/mL, 200 mL bottle. [id number]. Post-op diagnosis: Balloon angioplasty and atheretomy of common femoral, external iliac and the sfa on the left side. Complications: None. Estimated blood loss: 5mL-10mL. Responsiveness - Normal response to verbal stimuli; alert and oriented, PERRLA. Airway - Unaffected, no intervention required; spontaneous ventilation. Circulation: W/N/L, pulses unchanged. Nausea/Vomiting: No. Procedure completed. Patient transferred by bed to CPRU. Vital chart was stopped. Procedure Medications Start: 8:11 AM Stop: 8:11 AM Medication: Versed Amount: 1 mg Route: I.V. Start: 8:11 AM Stop: 8:11 AM Medication: Fentanyl Amount: 50 mcg Route: I.V. Start: 8:13 AM Stop: 8:13 AM Medication: Versed Amount: 1 mg Route: I.V. Start: 8:26 AM Stop: 8:26 AM Medication: Versed Amount: 1 mg Route: I.V. Start: 8:32 AM Stop: 8:32 AM Medication: Heparin Amount: 5000 units Route: I.V. Start: 8:37 AM Stop: 8:37 AM Medication: Fentanyl Amount: 25 mcg Route: I.V. Start: 8:54 AM Stop: 8:54 AM Medication: Versed 1 mg and Fentanyl 25 mcg Amount: 1 Route: I.V. Start: 9:17 AM Stop: 9:17 AM Medication: Heparin Amount: 2000 units Route: I.V. I, the attending physician, have reviewed and verified all procedure medications. Yes, all medications given per verbal order History/Risk Factors Hypertension: Yes Dyslipidemia: Yes Peripheral Arterial Disease (PAD): Yes Obesity: No Renal Disease: No Tobacco Use: Current/Recent(w/in 1 year) Prior Interventions PCI: No CABG: No Valve Surgery: No Report Signatures Finalized by Margot Loera MD on 08/24/2021 08:41 PM
[2021-08-10] MEDS: diphenhydrAMINE 50 mg Capsule PO (06:47)
--- NOTE | 2021-08-10 07:54 | P.HP_ITS ---
Same Day Surgery H&P Indication for Procedure/HPI DATE OF PROCEDURE: August 10, 2021 CHIEF COMPLAINT/INDICATIONFOR SURGICAL PROCEDURE: 76-year-old male past medical history significant for extensive peripheral arterial disease for lifestyle limiting claudication with also almost [place]. He underwent right common femoral external and common iliac reconstruction and stent placement few days ago. He was noted to have left common iliac, external iliac, common femoral and SFA occlusion with reconstitute at popliteal vessel. He continues to have significant lifestyle limiting claudication of the left leg his right leg is doing good. We brought him today to proceed with intervention of the left lower limb. Patient has been explained all risk benefit and alternative for the procedure. He understand risk for contrast-induced nephropathy embolic phenomena major minor bleed leading to transfusion, vascular injury, limb loss, hematoma, acute arterial occlusion and vascular surgery. He would like to proceed with it. PREOP DIAGNOSIS: PAD PLANNED PROCEDURE: Operation Date: 08/10/21 07:00 Proposed Procedures p Peripheral Diagnostic(Bilateral) - Margot Loera MD Medications/Allergies* Home Medications Medication Instructions Recorded Confirmed Type naproxen 500 mg tablet 500 mg PO BID 06/28/20 08/10/21 History cilostazol 100 mg tablet 100 mg PO BID 04/03/21 08/10/21 History albuterol sulfate 90 mcg/actuation 1 puff INHALATION QID 07/06/21 08/10/21 History aerosol inhaler amlodipine 5 mg tablet 5 mg PO BID 07/13/21 08/10/21 History pravastatin 40 mg tablet 40 mg PO DAILY 07/13/21 08/10/21 History Allergies/Adverse Reactions Allergy/AdvReac Type Severity Reaction Status Date / Time clopidogrel [From Plavix] Allergy facial Verified 08/08/21 08:08 swelling Penicillins Allergy head Verified 08/08/21 08:08 swelling Current Medications: Generic Name Dose Route Start Last Admin Trade Name Freq PRN Reason Stop Dose Admin Sodium Chloride 1,000 mls @ 50 mls/hr 08/10/21 06:00 08/10/21 06:47 Sodium Chloride 0.9% IV 08/11/21 01:59 Not Given .Q20H ONE Pertinent History/Comorbid Conditions* Medical History Atherosclerotic heart disease of [place] coronary artery without angina pectoris Cardiac cath in 04/2019- mild diffuse coronary artery disease History of claustrophobia Hyperlipidemia Hypertension Intermittent claudication Palpitations Smoking addiction Family History (Updated 06/28/20 @ 10:08 by Skylar Jim RN) Diabetes Peripheral arterial occlusive disease CAD (coronary artery disease) Heart attack Mother Hypertension Denies family history of Clotting disorder Dementia Hyperlipidemia Chronic kidney disease (CKD) Anesthesia complication Bleeding disorder Family history of premature coronary artery disease Lung disease Cancer Stroke Social History Smoking and tobacco status: current every day smoker Alcohol intake: current Alcohol intake frequency: 0-2 Drinks per Day Alcohol type: beer Pertinent Exam Findings alert, oriented x 3, clear to auscultation bilaterally and regular rate & rhythm GENERAL: Patient is alert, awake and oriented x3. NECK: No jugular vein distension. HEENT: No cyanosis. No icterus. No pallor. HEART: Regular S1 and S2. No murmur, rub or gallop. LUNGS: Clear to auscultate bilaterally. ABDOMEN: Soft, nontender and nondistended. Positive bowel sounds. No guarding, rebound or tenderness. CENTRAL NERVOUS SYSTEM: Grossly nonfocal. EXTREMITIES: Lower extremities without edema bilaterally. No palpable Pulses palpable in the lower extremities, both dorsalis pedis and posterior tibial. Recommendations Surgery/Procedure today Other Plans: We will proceed with peripheral angiogram through popliteal approach on the left side. Coding Level of Care Code New Pt Acute Tank Insulator Rubber for Chg Fwd Patient Type New History Detailed Exam Detailed Medical Decision Making Moderate Complexity
--- NOTE | 2021-08-10 09:45 | PC.NURSE ---
received pt from [employer] post atheretomy and balloon of L SFA. pt arrived by bed and was hooked up to monitor for vitals. pt alert and oriented x3 and complains of no pain. pt educated on restrictions of left leg and voiced understanding. pt will continue to be educated throughout recovery. family at bedside and also acknowledged understanding. sheath in left popliteal artery and plan to check ACT in 2 hrs. after removal of sheath, plan to dc at 4 hrs per verbal orders.
--- NOTE | 2021-08-10 12:02 | PC.NURSE ---
ACT result of 111
--- NOTE | 2021-08-10 13:33 | PC.NURSE ---
sheath successfully removed at 1315
--- NOTE | 2021-08-10 14:30 | PC.NURSE ---
Patient received from geophysical laboratory director no sheath bandage on pop C/D/I
[2021-08-10 15:56] LABS: Partial Thromboplastin Time 29.1 SECONDS (23.9-36.7)
[2021-08-10] MEDS: albuterol 8 gm MDI 1 PUFF INHALATION (16:53)
--- NOTE | 2021-08-10 17:34 | PM.DCS ---
Discharge Providers Date of Admission: 08/10/21 14:41 Date of Discharge: August 10, 2021 Attending Provider at Admission: Margot Loera MD Attending Provider at Discharge: Margot Loera MD Primary Care Provider: Jonn Duffy DO Reason for Visit Reason for Visit: 31078 [id number] Hospital Course Hospital Course 76-year-old male past medical history significant for coronary artery disease severe peripheral arterial disease who for chronically occluded bilateral common iliac vessel underwent few weeks ago through retrograde approach from the right common femoral vessel. External iliac common iliac vessel on the right side was treated with balloon angioplasty and covered stent in the right common iliac vessel. It was also noted that patient has left-sided occluded common iliac external iliac common femoral and left SFA. He was then brought in today for retrograde approach through left popliteal vessel. CSI atherectomy balloon angioplasty of the SFA common femoral external iliac and balloon angioplasty of left common iliac was performed. Good angiographic result with good flow was noted from common iliac to all the way into tibial vessels. During this angiogram it was noted that previously placed right common iliac stent appeared to be closed along with occlusion of right external iliac, common femoral vessel and the proximal SFA. It is most likely due to disease in the common femoral artery on the right side. We are planning to bring him back over next 1 to 2 weeks as patient is complaining of lifestyle limiting claudication in the right leg. Patient has completed bedrest. Left popliteal wound looks good no hematoma no bruising. He is being discharged home with instruction not to lift more than a gallon of milk for next 3 days advised not to climb stairs or drive. Advised to call us back if he noticed swelling pain in the leg . Discharge Data Studies Completed and Pending Pending at discharge Category Date Time Status BUSINESS CENTER REPRESENTATIVE request for service Routine Exams 08/10/21 06:00 Taken Basic Metabolic Panel AM [facility] Lab 08/11/21 04:00 Ordered Complete Blood Count w/Auto AM [facility] Lab 08/11/21 04:00 Ordered Laboratory Results APTT 29.1 SECONDS (23.9-36.7) 08/10/21 15:18 Vitals Last Vital Signs Temp 97.3 F L 08/10/21 06:40 Pulse 103 H 08/10/21 16:30 Resp 16 08/10/21 16:30 BP 150/72 08/10/21 14:00 Pulse Ox 93 08/10/21 16:30 Discharge Plan Discharge Patient Disposition: Home Condition: Stable Prescriptions: Continued carvedilol 25 mg tablet 25 mg PO BID 90 Days Qty: 180 3RF Rx Instructions: must administer with a meal/food albuterol sulfate 90 mcg/actuation HFA aerosol inhaler 1 puff inhalation QID 0RF prasugrel 10 mg tablet 10 mg PO DAILY Qty: 90 2RF naproxen 500 mg tablet 500 mg PO BID 0RF aspirin [Adult Low Dose Aspirin] 81 mg tablet,delayed release (DR/EC) 81 mg PO QDAY Qty: 30 0RF isosorbide mononitrate 120 mg tablet extended release 24 hr 120 mg PO QDAY Qty: 90 3RF chlorthalidone 25 mg tablet 25 mg PO DAILY Qty: 90 0RF amlodipine 5 mg Tablet 5 mg PO BID 0RF pravastatin 40 mg Tablet 40 mg PO DAILY 0RF Discontinued cilostazol 100 mg tablet 100 mg PO BID 0RF Discharge Orders: Discharge Order (Routine); Ordered 08/10/21 Ordered By: Margot Loera Referrals: Yoana Arroyo FNP [Nurse Practitioner] - 7-10 days ([facility] will be calling to schedule a post procedure followup with NELSON Palomo to be seen in approx 7 to 10 days. If you don't hear from them by Saturday early afternoon, please give them a call. Thank you) Discharge Diet: Cardiac Discharge Activity: Increase activity as tolerated Patient Instructions: Peripheral Vascular Angioplasty (DC), Opioid Safety, Post Angiogram Home Care Instructions Activity Restrictions/Additional Instructions: Follow-up with Yoana Arroyo in 10 days. Please schedule in 1 week patient for right leg peripheral angiogram for lifestyle limiting claudication and occluded recently placed iliac stent and SFA. Central Scheduling Department or [facility] will be calling with the details of your next Peripheral angiogram. If you don't hear from them by Saturday afternoon, please give them a call. Thank you Discharge Attestations Time Spent in Discharge Care*: less than 30 min Quality Metrics Clinical Quality Measures [ No reported AMI, CVA or VTE this stay] Coding Level of Care Code Acute Ibm Mainframe Developer for Katie Dumont
--- NOTE | 2021-08-10 18:37 | PC.NURSE ---
Discharge Note Patient discharged to [facility] via private vehicle accompanied by family. Discharge instructions reviewed with patient and/or customer counter representative. Mobile pharmacy medications and/or prescriptions provided. Belongings/home medications returned.
== END 2021-08-10 18:26 | disposition home or self-care (01) ==
LOC: CSU 14:48
PROVIDERS: Admitting Provider Internal Medicine Cardiovascular Disease; PCP Emergency Medicine Emergency Medical Services; Visit Provider Internal Medicine Cardiovascular Disease
DX: I73.9 Peripheral vascular disease, unspecified (principal); I25.10 Atherosclerotic heart disease of native coronary artery without angina pectoris; I10 Essential (primary) hypertension; E78.5 Hyperlipidemia, unspecified; Z79.82 Long term (current) use of aspirin; F17.210 Nicotine dependence, cigarettes, uncomplicated; Z82.49 Family history of ischemic heart disease and other diseases of the circulatory system; Z79.02 Long term (current) use of antithrombotics/antiplatelets
CPT/HCPCS: 0238T; 36415; 37225; 85730; 94640; C1724; C1725; C1769; C1887; C1894; G0378; J1644; J2250; J3010; J3490; J3535; J7030; Q0163; Q9967

== ENCOUNTER → 2021-08-21 11:40 | Outpatient (BNVA) | payer OTHER, SELFPAY | PROVIDERS: PCP Emergency Medicine Emergency Medical Services; Visit Provider Nurse Practitioner Family | DX: I73.9 Peripheral vascular disease, unspecified (principal) | CPT/HCPCS: 80048 ==

== ENCOUNTER → 2021-08-24 15:15 | Outpatient (BNVA) | payer OTHER, SELFPAY | PROVIDERS: PCP Emergency Medicine Emergency Medical Services; Referring Provider Internal Medicine Cardiovascular Disease | DX: Z20.822 Contact with and (suspected) exposure to COVID-19 (principal); I73.9 Peripheral vascular disease, unspecified | CPT/HCPCS: 87635 ==

== ENCOUNTER 2021-08-29 05:58 | Outpatient (CLI) | payer OTHER, SELFPAY ==
[2021-08-29] VITALS (26 sets, daily range): BP systolic 116–145; BP diastolic 62–85; PULSE 69–87; RESP 13–22; TEMP 36.3; O2SAT 86–98; BMI 29.6
--- NOTE | 2021-08-29 06:00 | XACV_ITS ---
Ht: 165 cm Wt: 81 kg BSA: 1.95 m2 Any Known Allergies: Plavix Gender: Male : 1945 Exam Type: Invasive Peripheral Vascular Procedure(s): Procedure Description: Peripheral Cath Diagnostic Procedure Procedure Description: Abdominal aortic angiography Procedure Description: Lower extremities' angiography Procedure Description: Perclose Exam Priority: Routine Conclusions Reason for peripheral angiogram: Lifestyle limiting claudication. Previously placed right common iliac stent.From contralateral left common femoral approach, peripheral angiogram was performed. Which confirmed occlusion of right common iliac, external and internal iliac and right common femoral. We collaterals was feeling right SFA.. Right popliteal approach was adopted to cross into right external iliac and common femoral artery. After crossing into right external iliac vessel our wire keep on going into dissection plane behind the previously placed common iliac stent. We then adopted to cross the contralateral left common femoral artery approach. Left common femoral artery approach was adopted to cross right common iliac stent. Despite of multiple attempts due to lack of guide support were not able to cross into right common iliac chronically occluded stent. We then also tried to right common femoral artery approach again after crossing into the right external iliac artery our wire keep on going to do dissection plane, it is therefore we aborted the procedure and decided to refer the patient to vascular surgery for possible aortofemoral bypass. Patient recovered from the procedure without any complication.. Recommendations Usual post-cath care. Continue medical management, refer patient for aortofemoral bypass if continues to be symptomatic. Access Site Site: Right Popliteal Sheath Size: 6 Fr Hemost... Method: Suture Hemost... Success: Successful Site: Left Femoral artery Sheath Size: 6 Fr Hemost... Method: Perclose (Sharma) Hemost... Success: Successful Site: Right Femoral artery Sheath Size: 6 Fr Hemost... Method: Manual Compression Hemost... Success: Successful Procedure Details Findings Procedure Consent Obtained. Admit Source: Out Patient. Pre-Procedure Time Out. Identified patient by full name and date of as verbalized by the patient/guarantor. Does the consent match the physician's order: Yes. Accurate & Complete Informed Consent: Yes. Inpatient/Outpatient History & Physical on Chart: Yes. If H&P is completed, is and addenduem needed: N/A; If yes, is the addendum complete: N/A. Visualize and Verify Site with Patient/Guarantor: N/A. Relevant Radiology Images available: Yes. The risks, benefits, and alternatives of sedation and/or procedure were discussed by physician. The patient agrees to continue. Procedure started. Correct patient, site and procedure confirmed by cath team. Current diagnosis: Peripheral arterial disease, lifestyle limiting claudication, occluded iliac stent. PERRLA. Strong, equal hand manager it training bilaterally. Lungs clear x 5 lobes. IV Site on Arrival: 20 gauge in the right anticubital. IV Fluids: 0.9% NaCl at KVO. 0 mL infused prior to pathology laboratory director. Pre Procedural Pulses: bilateral dorsalis pedis was Doppled. Pre Procedural Pulses: right posterior tibial was Absent. Pre Procedural Pulses: left posterior tibial was Doppled. Pre Procedural Pulses: bilateral radial was 2+. Oxygen started at 2liters/min via nasal canula. right popliteal was prepped with chloroprep then draped in the usual sterile fashion. Physician notified. Baseline sample Acquired. HR: 88 BPM. Physician arrived. Physician scrubbed in. Immediate Pre-Procedure Time Out. Correct Patient: Yes; Correct Procedure: Yes; Correct Site: Yes; Correct Patient Position: Yes; Correct Supplies: Yes; Dried Flammable Prep: Yes; Blood Products Available: N/A;. Lidocaine 1% infiltrated to the right popliteal. Bedside ultrasound obtained to assist with popliteal access. Arterial access obtained with micropuncture set. Glidewire inserted. Seeker in over glidewire. Glidewire removed. Hand injection through the seeker to left common femoral. Glidewire inserted through seeker. Glidewire removed. Hand injection through the seeker. Glidewire inserted. Seeker out over wire. Navicross support catheter in over wire. Glidewire removed. Hand injection through navicross catheter to the common femoral artery. Glidewire inserted. Wire and catheter out. A Suture was successful obtaining hemostatsis at the Right Popliteal insertion site. Sheath(s) sutured into position with 2-0 silk and sterile 4x4's and Op-site applied over the site. No oozing or signs and symptoms of hematoma noted. Arterial sheath flushed and connected to tranducer and pressure bag with heparinized saline. Patient repositioned from prone to supine position. Lidocaine 1% infiltrated to the left groin. Arterial access obtained with micropuncture set. Glidewire inserted. UF catheter in over wire. Abdominal aortogram performed in AP @ 10 mL/sec for a total of 30 mL. UF catheter out over glidewire. A 6 icelandic JR4 catheter in over wire. JR4 catheter out over wire. A 6 icelandic IM catheter in over wire. Unable to cross into right stented ostial iliac. JR4 guide and wire out. RIM catheter in over wire. Wire and catheter out. A Perclose (Sharma) was successful obtaining hemostatsis at the Left Femoral artery insertion site. Lidocaine 1% infiltrated to the right groin. Arterial access obtained with micropuncture set. [place] wire in through right femoral sheath. Seeker catheter in over glidewire. Glidewire out. Hand injection through the seeker. Glidewire in through the seeker. Wire and catheter out. A left femoral angiogram was performed to determine safe placement of closure device. A Manual Compression was successful obtaining hemostatsis at the Right Femoral artery insertion site. Perclose device deployed to left femoral artery. Manual pressure held for 3 minutes. Per close successful. Post Procedure: Pulses reassessed and unchanged. PERRLA. Strong, equal hand manager it training bilaterally. No VTE prophylaxis required. Medication's Wasted: Other = fentanyl 25mcg. Total IV fluids: 100 mL. Complications: None. Estimated blood loss: 5mL-10mL. Responsiveness - Normal response to verbal stimuli; alert and oriented, PERRLA. Airway - Unaffected, no intervention required; spontaneous ventilation. Circulation: W/N/L, pulses unchanged. Nausea/Vomiting: No. 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 Unsuccessful attempt to revascularize. Procedure completed. Patient transferred by stretcher to CPRU. Procedure Medications Start: 8:30 AM Stop: 8:30 AM Medication: Versed Amount: 1 mg Route: I.V. Start: 8:35 AM Stop: 8:35 AM Medication: Fentanyl Amount: 50 mcg Route: I.V. Start: 8:35 AM Stop: 8:35 AM Medication: Versed Amount: 1 mg Route: I.V. Start: 8:30 AM Stop: 8:30 AM Medication: Fentanyl Amount: 50 mcg Route: I.V. Start: 9:05 AM Stop: 9:05 AM Medication: Versed 1 mg and Fentanyl 25 mcg Route: I.V. Start: 10:12 AM Stop: 10:12 AM Medication: Versed Amount: 1 mg Route: I.V. Start: 10:12 AM Stop: 10:12 AM Medication: Fentanyl Amount: 50 mcg Route: IJuliana I, the attending physician, have reviewed and verified all procedure medications. Yes, all medications given per verbal order History/Risk Factors Hypertension: Yes Dyslipidemia: Yes Peripheral Arterial Disease (PAD): Yes Obesity: No Renal Disease: No Tobacco Use: Current/Recent(w/in 1 year) Prior Interventions PCI: No CABG: No Valve Surgery: No Report Signatures Finalized by Margot Loera MD on 09/02/2021 04:21 PM
[2021-08-29] MEDS: diphenhydrAMINE 50 mg Capsule PO (06:39)
--- NOTE | 2021-08-29 08:22 | W.PM.OPSUD ---
Surgery/Procedure H&P Update DATE OF PROCEDURE: August 29, 2021 DATE H&P PERFORMED: 07/10/21 H&P UPDATE INFORMATION: I have reviewed H&P completed within last 30 days, I have examined patient prior to procedure and No changes to prior documentation PREOP DIAGNOSIS: PAD PRIMARY INDICATION FOR PROCEDURE: Lifestyle limiting claudication of right leg. History of intervention to right common and external iliac vessel few weeks ago with covered stent in common iliac. Later it was noted to be occluded during angiogram. Today patient is brought in through popliteal approach for intervention of occluded right iliac stent and addressing the lesion in the common femoral vessel of the right side. Patient has been explained all risk benefit and alternative for the procedure he understand risk for major minor bleed urgent emergent vascular surgery limb loss amputation acute limb ischemia limb threatening ischemia stroke. He would like to proceed with it. PLANNED PROCEDURE: Operation Date: 08/29/21 07:00 Proposed Procedures p Peripheral Diagnostic(Right) - Margot Loera MD PHYSICAL EXAM: alert, oriented x 3 and clear to auscultation bilaterally AIRWAY EVAL/ANESTHESIA PLAN: ASA II and Risks, benefits & alternatives of sedation and/or procedure discussed
--- NOTE | 2021-08-29 10:45 | PC.NURSE ---
received pt from open hearth furnace laborer via bed. pt alert and oriented. pt complains of no pain. dressing dry and intact on right and left groin. pressure bag on right popliteal site. no bleeding or hematoma. pt educated on restrictions during recovery and stated understanding. at bedside also stated understanding. pt placed on 4 liters via nasal canula during recovery.
--- NOTE | 2021-08-29 12:30 | PC.NURSE ---
popliteal sheath removed at 1225 with no complications.
--- NOTE | 2021-08-29 15:32 | PC.NURSE ---
PT KEEPING CLOTHES ONLY AT BEDSIDE
--- NOTE | 2021-08-29 17:56 | PC.NURSE ---
pt discharged. All sites assessed, no bleeding or s/s of hematoma or other complications. pulses palpable on discharge. Discussed post cath care, follow up appointment and s/s of complications and when to seek treatment. pt left the hospital nick wheelchair to private vehicle with spouse. all questions addressed and answered.
== END 2021-08-29 17:54 | disposition home or self-care (01) ==
LOC: CCL 11:58 → CSU 16:46
PROVIDERS: PCP Emergency Medicine Emergency Medical Services; Visit Provider Internal Medicine Cardiovascular Disease
DX: I74.5 Embolism and thrombosis of iliac artery (principal); I25.10 Atherosclerotic heart disease of native coronary artery without angina pectoris; Z79.82 Long term (current) use of aspirin; E78.5 Hyperlipidemia, unspecified; I10 Essential (primary) hypertension; F17.210 Nicotine dependence, cigarettes, uncomplicated; Z82.49 Family history of ischemic heart disease and other diseases of the circulatory system; Z83.3 Family history of diabetes mellitus; I73.9 Peripheral vascular disease, unspecified
CPT/HCPCS: 36415; 75625; C1760; C1769; C1887; C1894; G0378; J1644; J2250; J3010; J7030; Q0163; Q9967

== ENCOUNTER → 2021-09-19 10:21 | Outpatient (BNVA) | payer OTHER, SELFPAY | PROVIDERS: PCP Emergency Medicine Emergency Medical Services; Visit Provider Nurse Practitioner Family | DX: I73.9 Peripheral vascular disease, unspecified (principal); F17.299 Nicotine dependence, other tobacco product, with unspecified nicotine-induced disorders; I10 Essential (primary) hypertension | CPT/HCPCS: 99213 ==

== ENCOUNTER → 2021-11-02 08:42 | Outpatient (BNVA) | payer OTHER, SELFPAY | PROVIDERS: PCP Emergency Medicine Emergency Medical Services; Visit Provider Specialist | DX: M19.012 Primary osteoarthritis, left shoulder (principal); Z71.89 Other specified counseling; F17.210 Nicotine dependence, cigarettes, uncomplicated | CPT/HCPCS: 20610; J1100; J2795; J3301 ==

== ENCOUNTER 2021-11-15 12:20 | Emergency (ER) | payer OTHER, MEDICARE, SELFPAY ==
[2021-11-15 12:27] VITALS: BP 154/76; PULSE 76; RESP 16; TEMP 36.6; O2SAT 97
--- NOTE | 2021-11-15 13:10 | XRR_ITS ---
PROCEDURE INFORMATION: Exam: XR Left Hand Exam date and time: 11/15/2021 1:18 PM Age: 76 years old Clinical indication: Injury or trauma; Fall; Blunt trauma (contusions or hematomas); Left; Injury details: PT. Fell lt. Hand swelling redness; Additional info: Injury/pain TECHNIQUE: Imaging protocol: XR Left hand. Views: 3 or more views. COMPARISON: No relevant prior studies available. FINDINGS: Bones/joints: No fracture or dislocation. Degenerative changes noted, manifested by joint space narrowing and periarticular osteophytes, involving mainly the IP joints and 1st CMC joint. Soft tissues: Swelling of the soft tissues is present. XR/XR hand LT min 3V* [id number] IMPRESSION: No acute injury.
--- NOTE | 2021-11-15 15:16 | W.ED.UPPEXIN ---
HPI - Extremity Injury (Upper) General: Chief Complaint: Extremity Injury, Upper Stated Complaint: left hand swelling/redness Time Seen by Provider: 11/15/21 12:41 Source: patient and family Mode of arrival: ambulatory Limitations: no limitations History of Present Illness: Patient is a 76-year-old male who presents to ED today for evaluation of a left hand injury. Patient tells me yesterday he was in a salvage yard digging for old tractor parts when he accidentally tripped and fell and landed onto the left hand. He states he has had pain and swelling to the hand since. He denies any other injuries sustained during the fall. MD complaint: injury to: left and hand Onset (ago): day(s) (yesterday) Other Extremity Injury: Left: hand Place: home Severity: mild Relieving factors: immobilization Exacerbating factors: movement of extremity Context: fall and direct blow Associated symptoms: Reports no associated symptoms; Denies neck pain or weakness in extremities Review of Systems Eyes: Denies: change in vision Card: Denies: chest pain, palpitations, lightheadedness, syncope or pre-syncope Resp: Denies: dyspnea GI: Denies: nausea or vomiting Musc: Reports: extremity pain (L hand) and extremity swelling (L hand); Denies: neck pain or back pain Neuro: Denies: headache(s), numbness in extremities, weakness in extremities, sensory changes, lack of coordination, difficulty walking, frequent falls, dizziness, confusion, behavioral changes or Slurred speech present [facility] ED PFSH: Medical History Atherosclerotic heart disease of [place] coronary artery without angina pectoris Cardiac cath in 04/2019- mild diffuse coronary artery disease History of claustrophobia Hyperlipidemia Hypertension Intermittent claudication Leg pain, left Palpitations Smoking addiction Family History Mother Heart attack Other CAD (coronary artery disease) Diabetes Hypertension Peripheral arterial occlusive disease Denies family history of Clotting disorder Dementia Hyperlipidemia Chronic kidney disease (CKD) Anesthesia complication Bleeding disorder Family history of premature coronary artery disease Lung disease Cancer Stroke Social History Smoking and tobacco status: current every day smoker Alcohol intake: current Alcohol intake frequency: 0-2 Drinks per Day Alcohol type: beer Physical Exam Const: COMMON NORMALS: no acute distress, average body habitus, patient oriented x3, no limitations, alert and well nourished GENERAL APPEARANCE: cooperative ORIENTATION/CONSCIOUSNESS: Yes awake, Yes oriented to person, Yes oriented to place and Yes oriented to time HENMT: COMMON NORMALS: normocephalic and atraumatic HEAD & SCALP: normal to inspection, normocephalic and atraumatic FACE & SINUS: normal facial exam Neck/C-Spine: COMMON NORMALS: full ROM CERVICAL SPINE: No Cervical spine tenderness Resp: COMMON NORMALS: normal respiratory effort and clear to auscultation bilaterally AUSCULTATION: clear to auscultation bilaterally Cardio: COMMON NORMALS: regular rate and regular rhythm RATE: regular rate RHYTHM: regular rhythm Back/Pelvis: COMMON NORMALS: thoracic and lumbar spine normal to inspection and no thoracic nor lumbar tenderness Extremity: COMMON NORMALS: capillary refill normal GENERAL: Yes normal exam except as noted LEFT UPPER EXTREMITY: Yes hand & digits (TTP and swelling to dorsum of L hand; no bony deformities) Left hand and digits: Yes neurovascular exam (normal) and Yes other (no abrasions/lacerations/infection noted) Neuro: BROOKS COMA SCALE: document GCS findings [place] coma scale eye opening: Spontaneous Brooks coma scale verbal response: Orientated Brooks coma scale motor response: Obey commands Brooks coma scale total score: 15 COMMON NORMALS: patient oriented x3, moves all extremities, no focal motor deficits and no sensory deficits noted SENSORIUM/ORIENTATION: Yes alert, Yes oriented to person, Yes oriented to place and Yes oriented to time Skin: COMMON NORMALS: no rashes or lesions noted GENERAL SKIN EXAM: no rashes or lesions noted TRAUMA: no lacerations or abrasions Course Vital Signs: Vital signs: Vital Signs Temperature 97.9 F 11/15/21 15:25 Pulse Rate 72 11/15/21 15:25 Respiratory Rate 16 11/15/21 15:25 Blood Pressure 137/78 11/15/21 15:25 Pulse Oximetry 98 11/15/21 15:25 MDM - Extremity Injury (Upper) Medical Decision Making XR negative. No abrasions/lacerations noted. Recommend ice/elevation and can follow up with PCP in 1-2 weeks if symptoms do not seem to improve. Lab Data Radiology Impressions Hand X-Ray 11/15/21 13:10 IMPRESSION: No acute injury. Discharge Plan Discharge Patient Disposition: Home Clinical Impression: Contusion of left hand Qualifiers: Encounter type: initial encounter Qualified Code(s): S60.222A - Contusion of left hand, initial encounter Condition: Stable Prescriptions: No Action carvedilol 25 mg tablet 25 mg PO BID 90 Days Qty: 180 3RF Rx Instructions: must administer with a meal/food albuterol sulfate 90 mcg/actuation HFA aerosol inhaler 1 puff inhalation QID 0RF prasugrel 10 mg tablet 10 mg PO DAILY Qty: 90 2RF furosemide 20 mg tablet 20 mg PO DAILY PRN (Reason: edema) Qty: 90 0RF naproxen 500 mg tablet 500 mg PO BID 0RF aspirin [Adult Low Dose Aspirin] 81 mg tablet,delayed release (DR/EC) 81 mg PO QDAY Qty: 30 0RF isosorbide mononitrate 120 mg tablet extended release 24 hr 120 mg PO QDAY Qty: 90 3RF chlorthalidone 25 mg tablet 25 mg PO DAILY Qty: 90 0RF amlodipine 5 mg Tablet 5 mg PO BID 0RF pravastatin 40 mg Tablet 40 mg PO DAILY 0RF cyclobenzaprine 10 mg Tablet 10 mg PO TID PRN (Reason: pain) 0RF Discharge Orders: Discharge ED (Routine); Ordered 11/15/21 Ordered By: Lesley Herrera Patient Instructions: Contusion, RICE Therapy Coding Level of Care Code ED Spread Cutter for Katie Dumont
[2021-11-15 15:24] VITALS: BP 137/78; PULSE 72; RESP 16; TEMP 36.6; O2SAT 98
[2021-11-15 15:25] VITALS: BP 137/78; PULSE 72; RESP 16; TEMP 36.6; O2SAT 98
== END 2021-11-15 15:27 | disposition home or self-care (01) ==
PROVIDERS: Emergency Provider Physician Assistant
DX: S60.222A Contusion of left hand, initial encounter (principal); W01.0XXA Fall on same level from slipping, tripping and stumbling without subsequent striking against object, initial encounter
CPT/HCPCS: 73130; 99283

== ENCOUNTER → 2022-01-09 12:51 | Outpatient (BNVA) | payer OTHER, SELFPAY | PROVIDERS: Visit Provider Podiatrist Foot & Ankle Surgery | DX: L60.3 Nail dystrophy (principal); I73.9 Peripheral vascular disease, unspecified | CPT/HCPCS: 11721 ==

== ENCOUNTER → 2022-01-16 13:42 | Outpatient (BNVA) | payer OTHER, SELFPAY | PROVIDERS: Visit Provider Internal Medicine Cardiovascular Disease | DX: I73.9 Peripheral vascular disease, unspecified (principal); R09.89 Other specified symptoms and signs involving the circulatory and respiratory systems; E78.2 Mixed hyperlipidemia; I11.0 Hypertensive heart disease with heart failure; I50.33 Acute on chronic diastolic (congestive) heart failure; I25.10 Atherosclerotic heart disease of native coronary artery without angina pectoris; F17.200 Nicotine dependence, unspecified, uncomplicated | CPT/HCPCS: 80048; 83880; 99214 ==

== ENCOUNTER 2022-01-22 20:34 | Emergency (ER) | payer OTHER, MEDICARE, SELFPAY ==
[2022-01-22 20:52] VITALS: BP 143/73; PULSE 87; RESP 16; TEMP 36.9; O2SAT 94; BMI 27.4
--- NOTE | 2022-01-22 22:50 | ED_ITS ---
HPI - General Adult General: Chief complaint: Ear Stated complaint: Swelling L side of face Time Seen by Provider: 01/22/22 22:38 History of Present Illness: Patient is a 76-year-old male with a history of bilateral hearing loss who presents emergency room with jaw pain and swelling in the back of the ear x 6 days. Patient says that symptom has gradually worsened over the last week to the point where when he opens his mouth he has left-sided pain along the insertion of the jaw line. Patient tells me that he has had decreased p.o. intake due to this pain and has had decreased p.o. intake. Patient denies any fever or chills, ear drainage, hearing loss, vertigo sensation. Patient noted mild swelling in the back of the ear and around the insertion of the jawline. Patient denies any trauma or injuries. Patient denies any recent dislocation of jaw. Onset: 6 days ago Duration:6 days Location:home Severity:moderate Associated symptoms: Deny chest pain, dyspnea, nausea, rash, palpitations or vomiting Review of Systems Const: Denies: fever(s) or chills Eyes: Denies: change in vision ENMT: Reports: other (+L jaw insertion site pain, +mild L jaw swelling, +L behind ear swelling); Denies: mouth pain Card: Denies: chest pain or palpitations Resp: Denies: dyspnea or non-productive cough GI: Denies: abdominal pain, nausea, vomiting or diarrhea : Denies: dysuria Musc: Denies: extremity pain Skin/Breast: Denies: rash or new lesions Neuro: Denies: weakness in extremities Psych: Reports: other (Normal mood) Edvendra/Lymph: Denies: easy bruising PFSH ED PFSH: Medical History Atherosclerotic heart disease of [place] coronary artery without angina pectoris Cardiac cath in 04/2019- mild diffuse coronary artery disease History of claustrophobia Hyperlipidemia Hypertension Intermittent claudication Leg pain, left Palpitations Smoking addiction Family History Mother Heart attack Other CAD (coronary artery disease) Diabetes Hypertension Peripheral arterial occlusive disease Denies family history of Clotting disorder Dementia Hyperlipidemia Chronic kidney disease (CKD) Anesthesia complication Bleeding disorder Family history of premature coronary artery disease Lung disease Cancer Stroke Social History Smoking and tobacco status: current every day smoker Alcohol intake: current Alcohol intake frequency: 0-2 Drinks per Day Alcohol type: beer Physical Exam Const: COMMON NORMALS: alert HENMT: COMMON NORMALS: atraumatic HEAD & SCALP: atraumatic MOUTH: moist mucous membranes not abnormal OTHER: + Mild left post auricular swelling without any warmth, induration, fluctuance + Trismus of the L jaw to opening + no denture +no gumline tenderness or swelling +L TMJ joint tenderness to palpation Eye: COMMON NORMALS: EOMs intact bilaterally and conjunctivae normal CONJUNCTIVA: Yes conjunctivae normal Neck/C-Spine: COMMON NORMALS: full ROM and supple Resp: COMMON NORMALS: normal respiratory effort and clear to auscultation bilaterally AUSCULTATION: clear to auscultation bilaterally Cardio: COMMON NORMALS: regular rate RATE: regular rate GI: COMMON NORMALS: Soft to palpation and non-tender PALPATION: Yes Soft to palpation Extremity: COMMON NORMALS: full ROM Neuro: SENSORIUM/ORIENTATION: Yes alert MOTOR EXAM: No Abnormal motor stren gth present and Other motor observations present (no focal motor deficits) Psych: COMMON NORMALS: speech normal SPEECH: Yes normal speech MOOD & AFFECT: Yes euthymic mood Course Vital Signs: Vital signs: Vital Signs Temperature 98.4 F 01/22/22 20:52 Pulse Rate 87 01/22/22 20:52 Respiratory Rate 16 01/22/22 20:52 Blood Pressure 143/73 01/22/22 20:52 Pulse Oximetry 94 01/22/22 20:52 MDM - General Adult Medical Decision Making 76-year-old male presenting to emergency room with 1 week of left sided TMJ area pain with surrounding swelling and postauricular swelling. At the present time, do not suspect facial infection, mastoiditis, or acute TMJ joint infection. I suspect patient symptom is related to overuse of the TMJ joint leading to arthralgia and pain/ I have given patient follow up with our assistant case manager to be seen by our outpatient ENT for TMJ arthralgia. Patient aware of a call from our assistant case manager to schedule for appointment(s) and verbalizes understanding of the importance of following up. Rx tylenol with codeine PRN pain Disposition: Discharge. Patient counseled regarding diagnostic impression, treatment plan. Patient given ED strict return precautions to return for continuation, worsening, or development of new symptoms. Instructed to f/u w/ ENT and primary care provider regarding symptoms today. Patient verbalized understanding. Discharge Plan Discharge Patient Disposition: Home Clinical Impression: TMJ arthralgia Condition: Stable Prescriptions: New acetaminophen-codeine 300-30 mg tablet 1 tab PO Q8H PRN (Reason: pain) Qty: 9 0RF No Action carvedilol 25 mg tablet 25 mg PO BID 90 Days Qty: 180 3RF Rx Instructions: must administer with a meal/food albuterol sulfate 90 mcg/actuation HFA aerosol inhaler 1 puff inhalation QID 0RF prasugrel 10 mg tablet 10 mg PO DAILY Qty: 90 2RF furosemide 20 mg tablet 20 mg PO DAILY PRN (Reason: edema) Qty: 90 0RF naproxen 500 mg tablet 500 mg PO BID 0RF amlodipine 10 mg tablet 10 mg PO DAILY 0RF isosorbide mononitrate 120 mg tablet extended release 24 hr 120 mg PO QDAY Qty: 90 3RF chlorthalidone 25 mg tablet 25 mg PO DAILY Qty: 90 0RF potassium chloride 8 mEq tablet extended release 8 meq PO DIRECTED Qty: 90 3RF Rx Instructions: Take 1 tab daily with Chlorthalidone. May take 1 additional tab with Furosemide. cyclobenzaprine 10 mg Tablet 10 mg PO TID PRN (Reason: pain) 0RF Discharge Orders: Discharge ED (Routine); Ordered 01/22/22 Ordered By: Romaine Mckenna Discharge Diet: Advance as tolerated Discharge Activity: Increase activity as tolerated Patient Instructions: Temporomandibular Disorder (ED) Activity Restrictions/Additional Instructions: Our assistant case manager will have you follow-up with ear/nose/throat doctor in the next few days. You would be expected to have a phone call with our assistant case manager who will put you on the schedule. You can expect a call from us in the next 2-3 days. If you don't hear from us, call us back in the emergency room at [phone]. Come back to the emergency room withworsening swelling in the face, fever/chills, ear drainage, redness, or new external complaints Coding Level of Care Code ED Produce Sorter for Katie Dumont
[2022-01-22 22:58] VITALS: BP 130/70; PULSE 88; RESP 16
[2022-01-22 23:15] VITALS: BP 130/70; PULSE 88; RESP 16
[2022-01-22] MEDS: acetaminophen-codeine 300-30mg Tablet 1 TAB PO (23:15)
--- NOTE | 2022-01-23 13:45 | DCPLANNER ---
Addendum entered by Amber Dempsey 02/05/22 17:47: Patient had a follow up appointment scheduled for 01.29.22 with ENT - patient did attend appointment. Original Note: crew manager had message to schedule a follow up appointment for patient with ENT. crew manager sent patients information to the front office staff at ENT. Patients information will be printed and reviewed. Clinic will call patient with appointment information. Patient has [facility] insurance, continuous pillowcase cutter sent patients information to Gr[facility] with [employer] [facility] community for the authorization process can be started.
== END 2022-01-22 23:17 | disposition home or self-care (01) ==
PROVIDERS: Emergency Provider Emergency Medicine
DX: R68.84 Jaw pain (principal)
CPT/HCPCS: 99283

== ENCOUNTER → 2022-01-29 15:21 | Outpatient (BNVA) | payer OTHER, SELFPAY | PROVIDERS: PCP Emergency Medicine Emergency Medical Services; Visit Provider Otolaryngology | DX: K11.7 Disturbances of salivary secretion (principal); E86.0 Dehydration; K11.20 Sialoadenitis, unspecified; F17.200 Nicotine dependence, unspecified, uncomplicated | CPT/HCPCS: 99203; 99204 ==

== ENCOUNTER → 2022-02-08 09:32 | Outpatient (BNVA) | payer OTHER, SELFPAY | PROVIDERS: PCP Emergency Medicine Emergency Medical Services; Visit Provider Specialist | DX: M19.012 Primary osteoarthritis, left shoulder (principal) | CPT/HCPCS: 20610; J1100; J2795; J3301 ==

== ENCOUNTER → 2022-04-10 08:05 | Outpatient (BNVA) | payer OTHER, SELFPAY | PROVIDERS: PCP Emergency Medicine Emergency Medical Services; Visit Provider Podiatrist Foot & Ankle Surgery | DX: I73.9 Peripheral vascular disease, unspecified (principal); L60.8 Other nail disorders; L60.3 Nail dystrophy | CPT/HCPCS: 11721 ==

== ENCOUNTER → 2022-05-10 10:16 | Outpatient (BNVA) | payer OTHER, SELFPAY | PROVIDERS: PCP Emergency Medicine Emergency Medical Services; Visit Provider Specialist | DX: M19.012 Primary osteoarthritis, left shoulder (principal) | CPT/HCPCS: 20610; J1100; J2795; J3301 ==

== ENCOUNTER → 2022-07-24 13:41 | Outpatient (BNVA) | payer OTHER, SELFPAY | PROVIDERS: PCP Emergency Medicine Emergency Medical Services; Visit Provider Internal Medicine Cardiovascular Disease | DX: I25.10 Atherosclerotic heart disease of native coronary artery without angina pectoris (principal); I73.9 Peripheral vascular disease, unspecified; I65.29 Occlusion and stenosis of unspecified carotid artery; I10 Essential (primary) hypertension; E78.2 Mixed hyperlipidemia; F17.200 Nicotine dependence, unspecified, uncomplicated | CPT/HCPCS: 99214 ==

== ENCOUNTER → 2022-08-16 09:36 | Outpatient (BNVA) | payer OTHER, SELFPAY | PROVIDERS: PCP Emergency Medicine Emergency Medical Services; Visit Provider Specialist | DX: M19.012 Primary osteoarthritis, left shoulder (principal); I73.9 Peripheral vascular disease, unspecified; L60.8 Other nail disorders; L60.3 Nail dystrophy | CPT/HCPCS: 11721; 20610; J1100; J2795; J3301 ==

== ENCOUNTER → 2022-10-25 10:54 | Outpatient (BNVA) | payer OTHER, SELFPAY | PROVIDERS: PCP Emergency Medicine Emergency Medical Services; Visit Provider Podiatrist Foot & Ankle Surgery | DX: I73.9 Peripheral vascular disease, unspecified (principal); L60.8 Other nail disorders; L60.3 Nail dystrophy | CPT/HCPCS: 11721 ==

== ENCOUNTER → 2022-11-22 09:49 | Outpatient (BNVA) | payer OTHER, SELFPAY | PROVIDERS: PCP Emergency Medicine Emergency Medical Services; Visit Provider Specialist | DX: M19.012 Primary osteoarthritis, left shoulder (principal); Z71.89 Other specified counseling | CPT/HCPCS: 20610; J1100; J2795; J3301 ==

== ENCOUNTER 2023-01-22 13:56 | Outpatient (CLI) | payer OTHER, SELFPAY ==
--- NOTE | 2023-01-22 14:16 | USCV_ITS ---
Ang Yap Age: 77 Gender: M : 1945 Exam Date: 01/22/2023 14:42 Ordering Phys: Jonn Duffy DO Technologist: [email or web address] Exam Location: [facility] [place] Indication: Left Carotid Bruit Risk Factors: Previous Vascular Surgery: Right Brachial BP: / Left Brachial BP: / Right Left Velocity (cm/s) Spectral Plaque Velocity (cm/s) Spectral Plaque Syst/Diast Broadening Syst/Diast Broadening 79.40/ 14.30 Prox CCA 124.60/ 22.10 70.60/ 15.40 Mid CCA 98.10 / 15.40 68.40/ 13.20 Distal CCA 90.40 / 16.50 70.60/ 14.30 Prox ICA 68.40 / 21.80 89.30/ 23.20 Mid ICA 52.90 / 14.30 69.50/ 22.10 Distal ICA 57.30 / 15.90 282.60 ECA 172.90 1.13 ICA/CCA 0.55 Antegrade Vertebral Antegrade 79.40/ 23.20 cm/s 33.50/ 7.20 cm/s Bi Subclavian Tri 94.80 126.2 0 CONCLUSIONS Right ICA stenosis <50%. Mild atheromatous plaque right carotid bulb/ICA. Left ICA stenosis <50%. Moderate atheromatous plaque right carotid bulb/ICA. Normal antegrade Doppler flow noted in the right vertebral artery. Normal antegrade Doppler flow noted in the left vertebral artery. Maldonado De Santiago MD (Electronically Signed) Final Date: 22 January 2023 15:38 S
== END 2023-01-22 13:57 | disposition home or self-care (01) ==
LOC: RAD 13:59
PROVIDERS: PCP Emergency Medicine Emergency Medical Services; Visit Provider Emergency Medicine Emergency Medical Services
DX: Z01.89 Encounter for other specified special examinations (principal); R09.89 Other specified symptoms and signs involving the circulatory and respiratory systems; I65.23 Occlusion and stenosis of bilateral carotid arteries
CPT/HCPCS: 93880

== ENCOUNTER → 2023-02-05 11:32 | Outpatient (BNVA) | payer OTHER, SELFPAY | PROVIDERS: PCP Emergency Medicine Emergency Medical Services; Visit Provider Internal Medicine Cardiovascular Disease | DX: I25.10 Atherosclerotic heart disease of native coronary artery without angina pectoris (principal); I73.9 Peripheral vascular disease, unspecified; I10 Essential (primary) hypertension; E78.2 Mixed hyperlipidemia; I65.23 Occlusion and stenosis of bilateral carotid arteries; F17.200 Nicotine dependence, unspecified, uncomplicated | CPT/HCPCS: 99214 ==

== ENCOUNTER → 2023-02-14 10:39 | Outpatient (BNVA) | payer OTHER, SELFPAY | PROVIDERS: PCP Emergency Medicine Emergency Medical Services; Visit Provider Podiatrist Foot & Ankle Surgery | DX: L60.8 Other nail disorders (principal); L60.3 Nail dystrophy; I73.9 Peripheral vascular disease, unspecified | CPT/HCPCS: 11721 ==

== ENCOUNTER → 2023-02-21 13:13 | Outpatient (BNVA) | payer OTHER, SELFPAY | PROVIDERS: PCP Emergency Medicine Emergency Medical Services; Visit Provider Specialist | DX: M19.012 Primary osteoarthritis, left shoulder (principal); Z71.89 Other specified counseling | CPT/HCPCS: 20610; J1100; J2795; J3301 ==

== ENCOUNTER → 2023-05-15 09:47 | Outpatient (BNVA) | payer OTHER, SELFPAY | PROVIDERS: PCP Emergency Medicine Emergency Medical Services; Visit Provider Podiatrist Foot & Ankle Surgery | DX: E11.8 Type 2 diabetes mellitus with unspecified complications (principal); L60.3 Nail dystrophy; I73.9 Peripheral vascular disease, unspecified | CPT/HCPCS: 11721 ==

== ENCOUNTER → 2023-06-13 09:11 | Outpatient (BNVA) | payer OTHER, SELFPAY | PROVIDERS: PCP Emergency Medicine Emergency Medical Services; Visit Provider Specialist | DX: M19.012 Primary osteoarthritis, left shoulder; Z71.89 Other specified counseling | CPT/HCPCS: 20610; J1100; J2795; J3301 ==

== ENCOUNTER → 2023-08-16 09:34 | Outpatient (BNVA) | payer OTHER, SELFPAY | PROVIDERS: PCP Emergency Medicine Emergency Medical Services; Visit Provider Nurse Practitioner Family | DX: I10 Essential (primary) hypertension (principal); I25.10 Atherosclerotic heart disease of native coronary artery without angina pectoris; I73.9 Peripheral vascular disease, unspecified; F17.200 Nicotine dependence, unspecified, uncomplicated | CPT/HCPCS: 99214 ==

== ENCOUNTER → 2023-08-28 07:48 | Outpatient (BNVA) | payer OTHER, SELFPAY | PROVIDERS: PCP Emergency Medicine Emergency Medical Services; Visit Provider Podiatrist Foot & Ankle Surgery | DX: L60.3 Nail dystrophy (principal); I73.9 Peripheral vascular disease, unspecified | CPT/HCPCS: 11721 ==

== ENCOUNTER → 2023-09-06 08:17 | Outpatient (BNVA) | payer OTHER, SELFPAY | PROVIDERS: PCP Emergency Medicine Emergency Medical Services; Visit Provider Specialist | DX: M19.012 Primary osteoarthritis, left shoulder (principal) | CPT/HCPCS: 20610; J1100; J2795; J3301 ==

== ENCOUNTER → 2023-11-20 08:41 | Outpatient (BNVA) | payer OTHER, SELFPAY | PROVIDERS: PCP Emergency Medicine Emergency Medical Services; Visit Provider Podiatrist Foot & Ankle Surgery | DX: L60.8 Other nail disorders (principal); L60.3 Nail dystrophy; I73.9 Peripheral vascular disease, unspecified | CPT/HCPCS: 11721 ==

== ENCOUNTER → 2023-12-06 08:18 | Outpatient (BNVA) | payer OTHER, SELFPAY | PROVIDERS: PCP Emergency Medicine Emergency Medical Services; Visit Provider Specialist | DX: M25.512 Pain in left shoulder (principal); M19.012 Primary osteoarthritis, left shoulder | CPT/HCPCS: 20610; J1100; J2795; J3301 ==

== ENCOUNTER → 2024-01-21 15:15 | Outpatient (BNVA) | payer OTHER, SELFPAY | PROVIDERS: PCP Emergency Medicine Emergency Medical Services; Visit Provider Internal Medicine Cardiovascular Disease | DX: I10 Essential (primary) hypertension (principal); I25.10 Atherosclerotic heart disease of native coronary artery without angina pectoris; E78.2 Mixed hyperlipidemia; R00.2 Palpitations; I73.9 Peripheral vascular disease, unspecified; I65.23 Occlusion and stenosis of bilateral carotid arteries; F17.210 Nicotine dependence, cigarettes, uncomplicated | CPT/HCPCS: 99214 ==

== ENCOUNTER → 2024-02-26 08:49 | Outpatient (BNVA) | payer OTHER, SELFPAY | PROVIDERS: PCP Emergency Medicine Emergency Medical Services; Visit Provider Podiatrist Foot & Ankle Surgery | DX: L60.3 Nail dystrophy (principal); I73.9 Peripheral vascular disease, unspecified | CPT/HCPCS: 11721 ==

== ENCOUNTER → 2024-03-13 08:09 | Outpatient (BNVA) | payer OTHER, SELFPAY | PROVIDERS: PCP Emergency Medicine Emergency Medical Services; Visit Provider Specialist | DX: M19.012 Primary osteoarthritis, left shoulder (principal) | CPT/HCPCS: 20610; J1100; J2795; J3301 ==

== ENCOUNTER → 2024-06-26 08:14 | Outpatient (BNVA) | payer OTHER, SELFPAY | PROVIDERS: PCP Emergency Medicine Emergency Medical Services; Visit Provider Specialist | DX: M19.012 Primary osteoarthritis, left shoulder (principal); Z71.89 Other specified counseling | CPT/HCPCS: 20610; J1100; J2795; J3301 ==

== ENCOUNTER → 2024-07-21 10:54 | Outpatient (BNVA) | payer OTHER, SELFPAY | PROVIDERS: PCP Emergency Medicine Emergency Medical Services; Visit Provider Internal Medicine Cardiovascular Disease | DX: I10 Essential (primary) hypertension (principal); I25.10 Atherosclerotic heart disease of native coronary artery without angina pectoris; E78.2 Mixed hyperlipidemia; I73.9 Peripheral vascular disease, unspecified; I65.23 Occlusion and stenosis of bilateral carotid arteries; Z87.891 Personal history of nicotine dependence | CPT/HCPCS: 99214 ==

== ENCOUNTER → 2024-10-07 08:20 | Outpatient (BNVA) | payer OTHER, SELFPAY | PROVIDERS: PCP Emergency Medicine Emergency Medical Services; Visit Provider Specialist | DX: M19.012 Primary osteoarthritis, left shoulder (principal) | CPT/HCPCS: 20610; J1100; J2795; J3301; J9999 ==

== ENCOUNTER → 2025-01-08 08:58 | Outpatient (BNVA) | payer OTHER, SELFPAY | PROVIDERS: PCP Emergency Medicine Emergency Medical Services; Visit Provider Specialist | DX: M19.012 Primary osteoarthritis, left shoulder (principal) | CPT/HCPCS: 20610 ==

== ENCOUNTER → 2025-01-21 10:37 | Outpatient (BNVA) | payer OTHER, SELFPAY | PROVIDERS: PCP Emergency Medicine Emergency Medical Services; Visit Provider Nurse Practitioner Family | DX: I25.10 Atherosclerotic heart disease of native coronary artery without angina pectoris (principal); I73.9 Peripheral vascular disease, unspecified; I10 Essential (primary) hypertension; E78.2 Mixed hyperlipidemia; I65.29 Occlusion and stenosis of unspecified carotid artery; Z79.82 Long term (current) use of aspirin; Z87.891 Personal history of nicotine dependence | CPT/HCPCS: 36415; 80048; 85025; 99213 ==

== ENCOUNTER → 2025-04-14 13:30 | Outpatient (BNVA) | payer OTHER, SELFPAY | PROVIDERS: PCP Emergency Medicine Emergency Medical Services; Visit Provider Specialist | DX: M19.012 Primary osteoarthritis, left shoulder (principal) | CPT/HCPCS: 20610; J1100; J2795; J3301; J9999 ==